=== PATIENT | female | born 1945 | race Caucasian/White ===

== ENCOUNTER 2023-06-19 13:01 | Inpatient (IN) | payer MEDICARE, OTHER, SELFPAY ==
[2023-06-19] VITALS (17 sets, daily range): BP systolic 112–143; BP diastolic 59–107
--- NOTE | 2023-06-19 08:08 | ED.GENMED ---
History of Present Illness
<Davey Blood PA-C - Last Filed: 06/19/23 10:53>
General
Chief Complaint: Chest Pain
Time Seen by Provider: 06/19/23 08:06
History of Present Illness
History of Present Illness:
78-year-old female with history of rheumatoid arthritis and hyperlipidemia (untreated, patient reports medications are 'too expensive') presents to the emergency department for evaluation of sudden onset of chest pain that awoke her from sleep this
morning. She notes that she had chest pain but felt she was in a dream, the exact time of symptom onset was unknown but she feels as though it could have been as early as 4 to 5 AM. Pain was reportedly quite severe, was administered 1 sublingual
nitroglycerin by EMS and pain is since resolved. Patient does endorse having episodic and exertional chest pain for the past several weeks but has neglected to tell her outpatient cardiology. Sees Dr. Weinstein with [facility],
apparently had an echocardiogram done yesterday for reevaluation of known 'leaky mitral valve'. Denies any shortness of breath, fever, chills, sweats, or lower extremity swelling. Former smoker quit greater than 20 years ago. Reports positive
family history of coronary artery disease
She did take a full dose 325mg asa this AM
Past History
<Davey Blood PA-C - Last Filed: 06/19/23 10:53>
Past History
ED Past Medical History: Fibromyalgia and Other (Kidney stones)
ED Past Surgical History: Other (Eye surgery)
Social History
Tobacco: Non-smoker
Alcohol: Occasional
Personal:
Living: with family
Employment: Employed
Family History
Family History: Negative Early CAD
Review of Systems
<Davey Blood PA-C - Last Filed: 06/19/23 10:53>
Review of Systems
Allergies reviewed?: Yes
All Other Systems: ROS reviewed and negative except as documented in HPI and ROS
Phy Exam
<Davey Blood PA-C - Last Filed: 06/19/23 10:53>
Physical Exam
Physical Exam:
GEN: Well appearing, NAD, WDWN
Eyes: PERRLA, EOMs intact, no scleral icterus
HENT: NCAT, oral mucosa moist, no JVD, no cervical adenopathy.
Lungs: CTAB, no wheezes, rales, rhonchi, normal chest wall excursion
Cardiac: RRR, no M/R/G, no peripheral edema. Radial pulses 2+ bilat
Abdomen: S, NT, ND, NABS, no masses or hepatosplenomegaly
Neuro: AO x 3, no focal deficits to BUE/BLE, normal sensation throughout
MSK: No gross deformity or ecchymosis. No edema. No digital clubbing
Skin: No rashes, petechiae. Normal color, no pallor or jaundice.
Psych: Calm, cooperative, proper hygiene
Scores
<Davey Blood PA-C - Last Filed: 06/19/23 10:53>
Heart Score for Chest Pain Patients
STEMI patient?: No
History: Highly Suspicious
ECG: Nonspecific Repolarization
Age: >/= 65 years
Risk Factors: 1 or 2 Risk Factors
Troponin: </= Normal Limit
Heart Score for Chest Pain Patients: 6
Heart Score Risk: 20.3% MACE over next 6 weeks
Course
<Davey Blood PA-C - Last Filed: 06/19/23 10:53>
Orders/Labs/Results
Orders:
Orders
06/19/23 Breakfast
NPO
Allow oral meds: Yes
Allow clear liquids: Sips of Clears
06/19/23 07:59
EKG [Electrocardiogram (*1)] Urgent
Reason for Study: Chest Pain
EKG- Treatment ONCE
06/19/23 08:07
CR Chest - 2 Views Urgent
Comment:
Reason For Exam: chest pain
06/19/23 08:12
Complete Blood Count/With Diff Urgent
Comprehensive Metabolic Panel Urgent
Troponin I Urgent
06/19/23 09:05
Aspirin Chewable [Low Strength Aspirin] 324 mg PO NOW STA
06/19/23 09:13
Heparin 4,000 units IV NOW STA
06/19/23 09:[address] Non Medication Order As Directed
Physician Order: PTT 6 hours after initial start of Heparin infusion
Above order entered?: Yes
06/19/23 09:15
Heparin 89277 Units/250 ml 25,000 units in 250 ml IV PER PROTOCOL
Weight to be used for heparin protocol in kilograms (kg):: 88.2
Protocol:: Cardiac Tx/Acute Coronary
PTT Goal Range to be used:: PTT 73 to 111 seconds
Order type:: Initial
INITIAL Infusion Dose (UNITS/KG/hr) & then follow protocol:: 12 units/kg/hr
Infusion Dose in UNITS/hr & then follow protocol (UNITS/hr):: 1,000
INFUSION RATE in mL/hr & then follow protocol (mL/hr):: 10
PTT less than or equal to 64 seconds:: Increase rate by 200 units/hr (+ 2 mL/hr)
PTT 64.1 to 72.9 seconds:: Increase rate by 100 units/hr (+ 1 mL/hr)
PTT 73 to 111 seconds:: Target Range. No change in rate.
PTT 111.1 to 130.9 seconds:: Decrease rate by 100 units/hr (- 1 mL/hr)
PTT 131 to 199.9 seconds:: HOLD for 1 hr. Then decrease rate by 200 units/hr (- 2 mL/hr)
PTT greater than or equal to 200 seconds:: HOLD for 2 hrs & Notify Provider. Then decrease by 200 units/hr (-
2 mL/hr)
Lab follow-up:: Each change, PTT q6h until 2 consecutive are therapeutic. Then PTT
daily.
06/19/23 09:25
PTT Urgent
Comment: Obtain baseline before beginning heparin infusion if not already collected
06/19/23 10:00
Metoprolol [Lopressor] 25 mg PO BID
06/19/23 10:32
EKG- Treatment ONCE
06/19/23 11:15
EKG [Electrocardiogram (*1)] Routine
Reason for Study: Chest Pain
Troponin I Routine
06/19/23 18:00
Atorvastatin [Lipitor] 40 mg PO QPM
Abnormal Lab Results
06/19/23 06/19/23
08:12 09:25
RBC 3.87 L 10^6/uL
(4.20-5.40)
Hgb 11.2 L g/dL
(12.0-16.0)
Hct 32.8 L %
(37.0-47.0)
Abs Immat Gran (auto) 0.1 H 10^3/uL
(0-0.05)
Absolute Neuts (auto) 9.5 H 10^3/uL
(1.4-6.5)
Absolute Lymphs (auto) 0.6 L 10^3/uL
(1.2-3.4)
Immature Gran % 0.6 H %
(0-0.5)
Neutrophils % 89.2 H %
(42.2-75.2)
Lymphocytes % 5.3 L %
(20.5-51.1)
APTT 21.9 L Sec
(23.4-35.0)
Troponin I 0.120 H* ng/ml
Total Protein 6.2 L g/dl
(6.3-8.2)
06/19/23 08:12
06/19/23 08:12
Vital Signs
Initial and Last Documented VS:
Initial Vital Signs
Pulse Resp BP
106 16 142/90
06/19/23 08:00 06/19/23 08:00 06/19/23 08:00
Last Documented Vital Signs
Temp Pulse Resp BP Pulse Ox
98.4 F 61 16 128/75 88
06/19/23 08:05 06/19/23 10:45 06/19/23 10:45 06/19/23 10:00 06/19/23 10:45
<Andres Shah, DO - Last Filed: 06/19/23 09:11>
Orders/Labs/Results
Orders:
Orders
06/19/23 Breakfast
NPO
Allow oral meds: Yes
Allow clear liquids: Sips of Clears
06/19/23 07:59
EKG [Electrocardiogram (*1)] Urgent
Reason for Study: Chest Pain
EKG- Treatment ONCE
06/19/23 08:07
CR Chest - 2 Views Urgent
Comment:
Reason For Exam: chest pain
06/19/23 08:12
Complete Blood Count/With Diff Urgent
Comprehensive Metabolic Panel Urgent
Troponin I Urgent
06/19/23 09:05
Aspirin Chewable [Low Strength Aspirin] 324 mg PO NOW STA
06/19/23 09:13
Heparin 4,000 units IV NOW STA
06/19/23 09:[address] Non Medication Order As Directed
Physician Order: PTT 6 hours after initial start of Heparin infusion
Above order entered?: Yes
06/19/23 09:15
Heparin 67999 Units/250 ml 25,000 units in 250 ml IV PER PROTOCOL
Weight to be used for heparin protocol in kilograms (kg):: 88.2
Protocol:: Cardiac Tx/Acute Coronary
PTT Goal Range to be used:: PTT 73 to 111 seconds
Order type:: Initial
INITIAL Infusion Dose (UNITS/KG/hr) & then follow protocol:: 12 units/kg/hr
Infusion Dose in UNITS/hr & then follow protocol (UNITS/hr):: 1,000
INFUSION RATE in mL/hr & then follow protocol (mL/hr):: 10
PTT less than or equal to 64 seconds:: Increase rate by 200 units/hr (+ 2 mL/hr)
PTT 64.1 to 72.9 seconds:: Increase rate by 100 units/hr (+ 1 mL/hr)
PTT 73 to 111 seconds:: Target Range. No change in rate.
PTT 111.1 to 130.9 seconds:: Decrease rate by 100 units/hr (- 1 mL/hr)
PTT 131 to 199.9 seconds:: HOLD for 1 hr. Then decrease rate by 200 units/hr (- 2 mL/hr)
PTT greater than or equal to 200 seconds:: HOLD for 2 hrs & Notify Provider. Then decrease by 200 units/hr (-
2 mL/hr)
Lab follow-up:: Each change, PTT q6h until 2 consecutive are therapeutic. Then PTT
daily.
06/19/23 09:25
PTT Urgent
Comment: Obtain baseline before beginning heparin infusion if not already collected
06/19/23 10:00
Metoprolol [Lopressor] 25 mg PO BID
06/19/23 10:32
EKG- Treatment ONCE
06/19/23 11:15
EKG [Electrocardiogram (*1)] Routine
Reason for Study: Chest Pain
Troponin I Routine
06/19/23 18:00
Atorvastatin [Lipitor] 40 mg PO QPM
Abnormal Lab Results
06/19/23 06/19/23
08:12 09:25
RBC 3.87 L 10^6/uL
(4.20-5.40)
Hgb 11.2 L g/dL
(12.0-16.0)
Hct 32.8 L %
(37.0-47.0)
Abs Immat Gran (auto) 0.1 H 10^3/uL
(0-0.05)
Absolute Neuts (auto) 9.5 H 10^3/uL
(1.4-6.5)
Absolute Lymphs (auto) 0.6 L 10^3/uL
(1.2-3.4)
Immature Gran % 0.6 H %
(0-0.5)
Neutrophils % 89.2 H %
(42.2-75.2)
Lymphocytes % 5.3 L %
(20.5-51.1)
APTT 21.9 L Sec
(23.4-35.0)
Troponin I 0.120 H* ng/ml
Total Protein 6.2 L g/dl
(6.3-8.2)
06/19/23 08:12
06/19/23 08:12
Vital Signs
Initial and Last Documented VS:
Initial Vital Signs
Pulse Resp BP
106 16 142/90
06/19/23 08:00 06/19/23 08:00 06/19/23 08:00
Last Documented Vital Signs
Temp Pulse Resp BP Pulse Ox
98.4 F 61 16 128/75 88
06/19/23 08:05 06/19/23 10:45 06/19/23 10:45 06/19/23 10:00 06/19/23 10:45
<Davey Blood PA-C - Last Filed: 06/19/23 10:53>
MDM/Problems Addressed
MDM/Problems Addressed:
78-year-old female presenting with acute onset of severe chest pain, now resolved after nitroglycerin. Having episodic anginal type symptoms over the course of the past few weeks. Does have cardiac risk factors with untreated hyperlipidemia and
positive family history. EKG does show some subtle lateral ST changes, initial troponin elevated. Most consistent with acute coronary syndrome. She remained chest pain-free in the emergency department, started on heparin drip and will admit to
the hospitalist service with cardiology consultation for further management
<Davey Blood PA-C - Last Filed: 06/19/23 10:53>
Comment
Comment:
EKG independently interpreted by me shows normal sinus rhythm at a rate of 99, borderline ST depressions in the lateral leads are new compared to prior EKG from 2010, no ST elevations, QTc of 444
Chest x-ray independently interpreted by me shows no acute cardiopulmonary disease
*Critical Care Note
Total Time (30-74mins, 75-104mins- exclusive of procedures): 30 mins
comment:
Critical care time: 30 minutes
Critical care time was exclusive of: Separately billable procedures, treating other patients, and teaching time
Critical care was necessary to treat or prevent imminent or life-threatening deterioration of the following conditions: Acute coronary syndrome
Critical care time spent personally by me on the following activities:
[x] Review of old charts
[x] Obtaining history from patient or surrogate
[x] Ordering and review of the laboratory studies
[x] Ordering and review of radiographic studies
[x] Ordering and performing treatments and interventions
[x] Patient patient's response to treatment
[x] Development of treatment plan with patient or surrogate
<Andres Shah DO - Last Filed: 06/19/23 09:11>
*Critical Care Note
Total Time (30-74mins, 75-104mins- exclusive of procedures): 30
<Davey Blood PA-C - Last Filed: 06/19/23 10:53>
Update Note
Update Note:
Patient had an echocardiogram performed [facility] yesterday, results were faxed over by the office, in summary 'severe concentric left ventricular hypertrophy with small LV cavity. Turbulent LVOT flow with no provokable gradients no
regional dysfunction. LVEF by visual estimation is 55 to 60%. Of note the aortic valve is tricuspid and thickened and calcified with mild aortic valve stenosis and trace aortic regurgitation, AoV velocity of 2.55 m/s and peak aortic valve gradient
of 26.1 mmHg. There is moderate calcification of the mitral valve leaflets with decreased posterior leaflet motility and moderate mitral annular calcification as well as turbulent inflow. Mild stenosis and regurgitation with a mean gradient of 4
mmHg. Aortic root and ascending aorta appear normal with no evidence of dilatation or obstruction'.
ED Attending Note
<Davey Blood PA-C - Last Filed: 06/19/23 10:53>
-
Portions of this chart may have been created with voice recognition software.� Occasional wrong word or��sound alike� substitutions may have occurred due to the inherent limitations of voice recognition software.
<Andres Shah DO - Last Filed: 06/19/23 09:11>
ED Attending Note
Patient seen and examined by attending physician: Yes
I performed the substantive portion of visit, reviewed & personally made and approve the management plan that is documented in note by myself or HILL.: Yes
ED Attending Note:
Seen with PA examined independently agree with assessment and plan consistent with ACS
Discharge Plan
Departure
Patient Disposition: Admit
Date of Disposition: 06/19/23
Time of Disposition: 09:13
Admit to: IVU
Presentation/result/management discussed w/ accepting MD/DO: Hospitalist
Discharge Problem:
Non-ST elevation ME (NSTEMI)
Prescriptions:
No Action
tramadol 50 mg tablet
37.5 mg PO Q8HPRN PRN (Reason: severe pain)
Patient Comments:
3/4 of a tablet
ipratropium bromide 42 mcg (0.06 %) spray,non-aerosol
1 spray INTRANASAL TID PRN (Reason: congestion)
zolpidem 12.5 mg tablet,ext release multiphase
12.5 mg PO HS
allopurinol 100 mg Tablet
100 mg PO DAILY
Rinvoq 15 mg Tablet Extended Release 24 Hr
15 mg PO DAILY
Breztri Aerosphere 160-9-4.8 mcg/actuation Hfa Aerosol Inhaler
1 inh INHALATION BIDPRN PRN (Reason: shortness of breath)
Tezspire 210 mg/1.91 mL (110 mg/mL) Syringe
210 mg SC Q4W
calc carb-mag ox-D3-zinc gluc 333 mg-133 mg- 1.67 mcg-5 mg Tablet
1 tab PO DAILY
Sleep Supplement
1 dose PO HS
Referrals:
Amy Lee DO [Family Provider] -
Interventions
Interventions:
*Risk Screen - Suicide Last Done: 06/19/23 08:05
*General Assessment Last Done: 06/19/23 08:05
*Neglect/Abuse Screening Last Done: 06/19/23 08:05
ED- Fall Risk Assessment Last Done: 06/19/23 08:33
*ED COVID-19 Vaccine History Last Done: 06/19/23 08:33
ED- Cardiac Assessment Last Done: 06/19/23 08:31
[2023-06-19 08:24] LABS: % Basophils 0.4 % (0-2); % Eosinophils 0.3 % (0-6); % Immature Granulocytes 0.6 % (0-0.5); % Lymphocytes 5.3 % (20.5-51.1); % Monocytes 4.2 % (1.7-9.3); % Neutrophils 89.2 % (42.2-75.2); Absolute Immature Granulocytes 0.1 10^3/uL (0-0.05); Absolute Lymphocytes 0.6 10^3/uL (1.2-3.4); Absolute Monocytes 0.5 10^3/uL (0.1-0.6); Absolute Neutrophils 9.5 10^3/uL (1.4-6.5); Hematocrit 32.8 % (37.0-47.0); Hemoglobin 11.2 g/dL (12.0-16.0); Mean Corp Hgb Conc. 34.1 g/dL (33.0-37.0); Mean Corpuscular Hgb 28.9 pg (27.0-31.0); Mean Corpuscular Volume 84.8 fL (81.0-99.0); Mean Platelet Volume 9.9 fL (7.4-10.4); Nucleated Red Blood Cells % 0 %; Platelet Count 231 10^3/uL (130-400); Red Blood Cell Count 3.87 10^6/uL (4.20-5.40); Red Cell Dist. Width 13.6 % (11.5-14.5); White Blood Cell Count 10.7 10^3/uL (4.8-10.8)
[2023-06-19 08:50] LABS: ALT (SGPT) 21 U/L (0-35); AST (SGOT) 29 U/L (14-36); Albumin 3.8 g/dl (3.5-5.0); Alkaline Phosphatase 76 U/L (38-126); Blood Urea Nitrogen 15 mg/dl (7-17); Calcium 9.4 mg/dl (8.4-10.2); Carbon Dioxide 26 mmol/L (22-30); Chloride 105 mmol/L (98-107); Glucose 98 mg/dl (70-99); Potassium 3.9 mmol/L (3.5-5.1); Sodium 135 mmol/L (135-145); Total Bilirubin 0.9 mg/dl (0.2-1.3); Total Protein 6.2 g/dl (6.3-8.2); eGFR > 60.00
[2023-06-19] MEDS: LOPRESSOR 25 MG PO ×2 (09:28→20:59)
[2023-06-19] MEDS: HEPARIN 4000 UNITS IV (09:39)
[2023-06-19] MEDS: HEPARIN 25000 UNITS/250 ML IV (09:40)
[2023-06-19 10:03] LABS: APTT 21.9 Sec (23.4-35.0)
--- NOTE | 2023-06-19 10:29 | CON.CAR ---
Addendum entered and electronically signed by Luann Ramirez MD 06/19/23 15:35:
I saw and examined the patient.
The Histotechnologist Supervisor's note was reviewed and I agree with the note.
Comment: Briefly, patient is a 78-year-old female with past medical history of hypertension, intolerant of multiple medications, hyperlipidemia, statin intolerance and fibromyalgia who presents to the emergency department for evaluation of 2-week
history of exertional dyspnea and chest discomfort found to have mild troponin elevation concerning for a possible NSTEMI. She feels like her shortness of breath never got better after her RSV infection over March. She denies any active chest
pain however she woke up around 4 AM feeling like an elephant was sitting on her chest. Her initial troponin was 0.12 and the second 1 went up to 0.33. Normal renal function. She received sublingual nitroglycerin and route. ECG with very mild ST
depressions in the lateral leads. She was given full dose aspirin and cardiology was consulted. Of note, she underwent a echocardiogram at her primary computer assembler office yesterday with report showing preserved LV systolic function, LVEF of 55 to
60%, no recent abnormalities, moderate mitral regurgitation, mild mitral stenosis and mild aortic stenosis.
Vital signs are stable. Lab work reviewed with normal renal function. Troponin 0.1-0.33. Otherwise normal electrolytes. Lipid panel is pending. Per outpatient cardiology note she stopped taking multiple blood pressure medications due to wearing
this and side effects from each of them. She has previously tried amlodipine, losartan, hydrochlorothiazide as well as Aldactone with intolerance to all of them. She has reportedly also been on multiple different statins with intolerance. She has
never been on Zetia or PCSK9 inhibitor.
Recommendations:
1. Lengthy discussion was had with the patient given her presentation with multiple uncontrolled cardiovascular risk factors and in a shared decision-making fashion, we have decided to move forward with left heart catheterization and coronary
angiogram to rule out obstructive CAD. I also spoke with her outpatient computer assembler, Dr. Warren Weinstein who has agreed with our plan.
2. In the interim we will continue with medical therapy of possible NSTEMI with daily baby aspirin, high intensity statin, beta-mj as well as as a IV heparin drip.
3. Further recommendations based on the results of the heart catheterization.
Luann Ramirez MD, [facility], [facility]
Original Note:
Consultation
Consultation Request
Date/Time Consultation Requested: 06/19/2023
Date/Time Consultation Performed: 06/19/2023 at 0930
Requesting Provider: Dr. Shah
Performing Provider: Dr. Ramirez
Reason for Consultation: Chest pain, ACS
Medical History
-
History of Present Illness:
HPI: Abena is an 78 year old female with PMH of HLD and fibromyalgia who presented to [facility] for evaluation of chest pain. She follows with Dr. Weinstein with [facility] and states that for the past week she has noted worsening chest tightness with exertion.
She states it has been progressing to the point where she is symptomatic with even minimal exertion. Just cooking dinner caused her to have chest tightness. She then reports that last night, around 4 AM she awoke with severe central chest pressure,
stating that it for like an elephant was sitting on her chest. She states she was unable to get out of bed due to weakness associated with this. She also had chest tightness and felt like she was not able to take a deep breath. She tried getting
out of bed, but given how severe her symptoms were, she had her call 911. When EMS arrived, they gave her sublingual nitroglycerin, after this, her chest discomfort resolved. On arrival to the emergency room, she was noted to have elevated
troponin at 0.12. Given symptoms, she was started on IV heparin and given aspirin 324 mg and cardiology was consulted given concern for ACS. Of note, she had echocardiogram completed at her primary computer assembler's office yesterday which revealed
preserved EF at 55 to 60% with no regional wall motion abnormalities noted. She notes that she did have some mild recurrence of the chest tightness while in ER, however after being started on heparin drip, she states this is now also resolved.
PMH:
Hypertension
Intolerant to multiple medications
Mitral stenosis
Mitral regurgitation
Vitamin D deficiency
Fibromyalgia
Hyperlipidemia
Statin intolerant
Asthma
Former smoker
Past Medical History
Past Medical History: Other (In HPI)
Past Surgical History: Other (lithotripsy, carpal tunnel release)
Social History
Tobacco: Former Smoker
Alcohol: Occasional
Drug: None
Personal:
Living: With Family
Employment: Retired
Family History
Family History: CAD and Hypertension
Allergies / Home Medications
Allergy/AdvReac Type Severity Reaction Status Date / Time
neomycin [Neomycin] Allergy EYE DROPS Verified 06/19/23 08:05
Sulfa (Sulfonamide Allergy Hives Verified 06/19/23 08:05
Antibiotics)
sulfacetamide Allergy Hives Verified 06/19/23 08:05
Medication Instructions Recorded Confirmed Type
Sleep Supplement 1 dose PO HS Sleep 06/19/23 06/19/23 History
allopurinol 100 mg tablet 100 mg PO DAILY 06/19/23 06/19/23 History
budesonide 160 mcg-glycopyr 9 1 inh inhalation BIDPRN PRN 06/19/23 06/19/23 History
mcg-formot 4.8 mcg/actuation HFA shortness of breath
inhaler (Breztri Aerosphere)
calcium carb 333 mg-mag ox 133 1 tab PO DAILY 06/19/23 06/19/23 History
mg-D3 1.67 mcg-zinc gluc 5 mg
tablet
ipratropium bromide 42 mcg (0.06 1 spray intranasal TID PRN 06/19/23 06/19/23 History
%) nasal spray congestion
tezepelumab-ekko 210 mg/1.91 mL 210 mg SC Q4W asthma 06/19/23 06/19/23 History
(110 mg/mL) subcutaneous syringe
(Tezspire)
tramadol 50 mg tablet 37.5 mg PO Q8HPRN PRN severe pain 06/19/23 06/19/23 History
upadacitinib 15 mg tablet,extended 15 mg PO DAILY Psoriatic arthritis 06/19/23 06/19/23 History
release 24 hr (Rinvoq)
zolpidem 12.5 mg tablet,extended 12.5 mg PO HS Sleep 06/19/23 06/19/23 History
release,multiphase
Review of Systems
-
History Source: Patient
All other systems: Negative unless noted
Physical Exam
Vital Signs
Temp Pulse Resp BP Pulse Ox
98.4 F 82 16 142/90 94
06/19/23 08:05 06/19/23 09:28 06/19/23 08:05 06/19/23 09:28 06/19/23 08:31
Lab Results
06/19/23 08:12
06/19/23 08:12
Troponin I 0.120 ng/ml H* 06/19/23 08:12
Physical Exam
General: Well Developed, Well Nourished and No Apparent Distress
HEENT: Normocephalic, Anicteric and Moist Mucous Membranes
Respiratory: Clear and Non Labored Respirations
Cardiac: S1/S2 and Regular Rhythm
GI: Soft, Non Tender and Non Distended
Musculoskeletal: No Clubbing, No Cyanosis and No Edema
Skin: Warm and Dry
Neuro: AO x 3 and Nonfocal/Grossly Intact
Psych: Calm
Impression / Plan
-
PCP: Dr. Lee
[place] Monitoring Technician: Dr. Weinstein ([facility]), wishes to transition to [facility]
Impression:
Presented with chest pain
Elevated troponin, suspect NSTEMI
Hypertension
Intolerant to multiple medications
Mitral stenosis
Mitral regurgitation
Vitamin D deficiency
Fibromyalgia
Hyperlipidemia
Statin intolerant
Asthma
Former smoker
Echo @[facility] 06/18/2023: EF 55-60%, severe cLVH, no regional dysfunction, mild with peak/mean gradients 26/17 mmHg, moderate MAC, mild MS and MR
Plan:
-Presented with chest pain. Has been having exertional chest tightness x 1 week, however last night awoke with substernal chest pain/pressure.
-Pain resolved s/p SL nitro en route. Also given aspirin 324 mg in ER.
-Troponin elevation noted on arrival, initial troponin of 0.120. Continue to trend to peak.
-EKG stable in SR with no acute ischemic changes noted.
-Started on heparin gtt. Pain free currently.
-Given chest pain concerning for ACS, plan will be for cardiac cath today. Pt agreeable. Keep NPO.
-Echo completed yesterday as OP revealed EF 55-60% with no RWMA.
-She has history of hypertension with prior intolerance to multiple antihypertensives. Per las OP cardiology note, her BPs were stable off of medical therapy.
-Previously intolerant of amlodipine, aldactone, HCTZ, and losartan.
-Also known h/o HLD, intolerant to statin medications. Check CVE. Will need to consider PCSK9 inhibitor.
-Check Hgb A1c.
-Requested and reviewed prior cardiology records including last office visit and echo.
HPI: Abena is an 78 year old female with PMH of HLD and fibromyalgia who presented to [facility] for evaluation of chest pain. She follows with Dr. Weinstein with [facility] and states that for the past week she has noted worsening chest tightness with exertion.
She states it has been progressing to the point where she is symptomatic with even minimal exertion. Just cooking dinner caused her to have chest tightness. She then reports that last night, around 4 AM she awoke with severe central chest pressure,
stating that it for like an elephant was sitting on her chest. She states she was unable to get out of bed due to weakness associated with this. She also had chest tightness and felt like she was not able to take a deep breath. She tried getting
out of bed, but given how severe her symptoms were, she had her call 911. When EMS arrived, they gave her sublingual nitroglycerin, after this, her chest discomfort resolved. On arrival to the emergency room, she was noted to have elevated
troponin at 0.12. Given symptoms, she was started on IV heparin and given aspirin 324 mg and cardiology was consulted given concern for ACS. Of note, she had echocardiogram completed at her primary computer assembler's office yesterday which revealed
preserved EF at 55 to 60% with no regional wall motion abnormalities noted. She notes that she did have some mild recurrence of the chest tightness while in ER, however after being started on heparin drip, she states this is now also resolved.
Data Reviewed
-
EKG: Tracing Personally Visualized and interpreted
Radiology: Report Reviewed by me
Labs: Labs Reviewed by me
Old Records: Requested and Reviewed
[2023-06-19 12:09] LABS: Troponin I 0.335 ng/ml
--- NOTE | 2023-06-19 13:48 | HPS.HSE ---
Family Physician
-
Family Physician: Amy Lee
Chief Complaint
-
chest pain
History of Present Illness
78 y/o F, hx of HTN, HLD, former smoker presents to ER for chest pain. She reports symptoms began 1 week prior with chest tightness with exertion and progressed to the point of discomfort with minimal exertion. Last evening she woke up with severe
pain, like an elephant sitting on her chest. She felt SOB as well. 911 was called. She received SL Nitro with improvement; she took ASA at home. In ER, trop elevated and so started on IV Heparin for NSTEMI and admitted to IVU for cath today.
Of note, she had an Echo yesterday showing EF 55% with no WMA.
Medical History
Past Medical History
Past Medical History: Reports Other (Hypertension Intolerant to multiple medications Mitral stenosis Mitral regurgitation Vitamin D deficiency Fibromyalgia Hyperlipidemia Statin intolerant Asthma Former smoker)
Past Surgical History: Reports Urological
Social History
Tobacco: Former Smoker
Alcohol: Occasional
Drug: None
Personal:
Living: With Family
Employment: Retired
Family History
Family History: CAD and Hypertension
Allergies / Home Medications
Allergies reflects when Allergies were last updated in [facility].
Home Medications with original date entered in [facility]
Allergy/Medication List:
Allergies
Allergy/AdvReac Type Severity Reaction Status Date / Time
neomycin [Neomycin] Allergy EYE DROPS Verified 06/19/23 08:05
Sulfa (Sulfonamide Allergy Hives Verified 06/19/23 08:05
Antibiotics)
sulfacetamide Allergy Hives Verified 06/19/23 08:05
Home Medications
Sleep Supplement 1 dose PO HS Sleep 06/19/23
allopurinol 100 mg tablet 100 mg PO DAILY Gout 06/19/23
budesonide 160 mcg-glycopyr 9 mcg-formot 4.8 mcg/actuation HFA inhaler (Breztri Phantom Payphere) 1 inh inhalation BIDPRN PRN shortness of breath 06/19/23
calcium carb 333 mg-mag ox 133 mg-D3 1.67 mcg-zinc gluc 5 mg tablet 1 tab PO DAILY Supplement 06/19/23
ipratropium bromide 42 mcg (0.06 %) nasal spray 1 spray intranasal TID PRN congestion 06/19/23
tezepelumab-ekko 210 mg/1.91 mL (110 mg/mL) subcutaneous syringe (Tezspire) 210 mg SC Q4W asthma 06/19/23
tramadol 50 mg tablet 37.5 mg PO Q8HPRN PRN severe pain 06/19/23
upadacitinib 15 mg tablet,extended release 24 hr (Rinvoq) 15 mg PO DAILY Psoriatic arthritis 06/19/23
zolpidem 12.5 mg tablet,extended release,multiphase 12.5 mg PO HS Sleep 06/19/23
Review of Systems
-
A 12 point ROS was completed and negative except as noted: Yes
Physical Exam
Vital Signs
Vital Signs
Temp Pulse Resp BP Pulse Ox
98.4 F 61 16 128/75 88
06/19/23 08:05 06/19/23 10:45 06/19/23 10:45 06/19/23 10:00 06/19/23 10:45
Physical Exam
General: No Apparent Distress
HEENT: NormoCephalic and Anicteric
Respiratory: No Wheezes or Rales
Cardiac: S1/S2 and Regular Rhythm
GI: Soft and Non Tender
Neuro: AO x 3
Hematologic/Lymphatic: No Lymphadenopathy
Psych: Calm
Laboratory Results
-
06/19/23 08:12
06/19/23 08:12
Laboratory Results
APTT 21.9 Sec (23.4-35.0) L 06/19/23 09:25
Total Bilirubin 0.9 mg/dl (0.2-1.3) 06/19/23 08:12
AST 29 U/L (14-36) 06/19/23 08:12
ALT 21 U/L (0-35) 06/19/23 08:12
Alkaline Phosphatase 76 U/L (38-126) 06/19/23 08:12
Troponin I 0.335 ng/ml H* D 06/19/23 11:23
Data Reviewed
-
Lab Data: Labs Reviewed by me
Impression/Plan
-
Assessment:
Presented with chest pain
Elevated troponin, suspect NSTEMI
- IVU admit
- continue to trend trops
- s/p ASA load in ER
- continue IV Heparin - requires intensive monitoring
- DCA Cards, possible cath today
- outside Echo yesterday: EF 55-60%, severe cLVH, no regional dysfunction, mild with peak/mean gradients 26/17 mmHg, moderate MAC, mild MS and MR
Essential Hypertension
- Intolerant to multiple medications
Mitral stenosis
Mitral regurgitation
Vitamin D deficiency
Fibromyalgia
- on Rinvoq
Hyperlipidemia
- check lipids
- Statin intolerant
Asthma
- on Tezspire
Former smoker
DVT ppx: IV Heparin
Code: Full
--- NOTE | 2023-06-19 15:36 | ITS.CL.CATH ---
Agricultural Systems Specialist - Catheterization
Cardiac Catheterization
Procedure Report:
LEFT HEART CATHETERIZATION
Date of Procedure: June 19, 2023
Referring: [place] emergency department
PROCEDURES:
1. Left heart catheterization, coronary angiogram.
2. Ultrasound-guided access
INDICATION: Abena is a 78-year-old female with past medical history of tobacco abuse, former, uncontrolled hypertension, intolerant to multiple medications, hyperlipidemia, statin intolerance, fibromyalgia who presents today with 2-week history of
dyspnea on exertion and intermittent chest tightness found to have a possible NSTEMI and is now being referred for a left heart catheterization to rule out obstructive CAD.
ACCESS: Right radial artery, 6 Guyanese sheath, under ultrasound guidance.
HEMODYNAMICS : (mmHg)
AO (s/d) : 146/82
LV (s/d) : 146/9
LVEDP : 20
CORONARY FINDINGS
DOMINANCE: Right
LEFT MAIN: Left main artery is a large-caliber vessel which gives rise to the left anterior descending artery and the left circumflex artery. There is minimal luminal irregularities.
LEFT ANTERIOR DESCENDING: The left anterior descending artery is a large-caliber vessel which gives rise to 1 major diagonal branch along with multiple small caliber diagonal branches as it courses through the anterior interventricular groove and
wraps around the apex. There is diffuse mild atherosclerotic plaque in the midportion of the LAD. Otherwise there is minimal luminal irregularities.
CIRCUMFLEX: The left circumflex artery is a medium caliber vessel which gives rise to 1 major branching obtuse marginal branch. The proximal portion of the OM has diffuse 30% stenosis.
RIGHT CORONARY ARTERY: The right coronary artery is a medium caliber vessel which gives rise to the right posterior descending artery and the right posterolateral system. There is mild diffuse atherosclerotic plaque throughout the vessel.
SEDATION: 28 minutes of procedural sedation was utilized. An independent medical typist was present to assist with and help manage the patient's level of consciousness and physiologic status.
RADIATION SUMMARY: Fluoro Time (min): 4.8, Dose (mGy): 369.2, DAP (Gy.cm2) : 26.0
Closure Device: Vascular band over right radial artery, 13 cc of air
CONCLUSIONS
1. Non-obstructive coronary artery disease.
2. Elevated systemic blood pressures and LVEDP.
RECOMMENDATIONS
1. Aggressive management of cardiovascular risk factors.
2. Wean radial band per protocol.
Copy to: Warren Weinstein
Luann Ramirez MD, FACC, [facility]
--- NOTE | 2023-06-19 16:18 | CM ---
CM following for DC planning needs.
Met w/ patient, spouse at bedside to complete initial assessment.
Pt. resides w/ spouse in a private, 2 story home w/ 4 DAYO.
Functionally, patient is indep. with ADLs, mobility without the use of any assisted device. They have a stair glide in the home to the 2nd level.
Pt. has Rx plan and uses [facility] in [place].
Anticipated DC plan is for home without needs.
Will follow.
[2023-06-19] MEDS: LASIX 20 MG IV (17:21)
[2023-06-19 19:06] LABS: Troponin I 0.656 ng/ml
--- NOTE | 2023-06-19 19:32 | PTCARENOTE ---
Pt with NSTEMI received post cardiac cath done via right radial artery. Radial band removed without problem. Pt reported feeling short of breath, pulse ox 97% on room air. Pt given IV lasix, diuresing well. Telemetry shows sinus rhythm. Troponin
still trending up slightly.
[2023-06-19] MEDS: NON-FORMULARY ITEM 1 UNIT PO (22:07)
[2023-06-20] VITALS (8 sets, daily range): BP systolic 116–141; BP diastolic 68–106; PULSE 60–69; O2SAT 94; BMI 32.6
[2023-06-20 05:38] LABS: Hematocrit 36.3 % (37.0-47.0); Mean Corp Hgb Conc. 33.1 g/dL (33.0-37.0); Mean Corpuscular Hgb 28.7 pg (27.0-31.0); Mean Corpuscular Volume 86.8 fL (81.0-99.0); Platelet Count 259 10^3/uL (130-400); Red Blood Cell Count 4.18 10^6/uL (4.20-5.40); Red Cell Dist. Width 13.6 % (11.5-14.5); White Blood Cell Count 6.6 10^3/uL (4.8-10.8)
[2023-06-20 06:08] LABS: Troponin I 0.721 ng/ml
[2023-06-20 06:18] LABS: Blood Urea Nitrogen 19 mg/dl (7-17); Calcium 9.8 mg/dl (8.4-10.2); Carbon Dioxide 31 mmol/L (22-30); Chloride 101 mmol/L (98-107); Estimated Creatinine Clearance 58 ml/min; Glucose 102 mg/dl (70-99); HDL Cholesterol 62 mg/dl; LDL Cholesterol, Calculated 136 mg/dl; Magnesium 2.2 mg/dl (1.6-2.3); Potassium 4.4 mmol/L (3.5-5.1); Sodium 139 mmol/L (135-145); Total Cholesterol 233 mg/dl (50-199); Triglyceride 179 mg/dl (10-149); Very Low Density Lipoprotein 35 mg/dl (0-30); eGFR > 60.00
[2023-06-20] MEDS: LOPRESSOR 25 MG PO (08:57)
--- NOTE | 2023-06-20 11:11 | PTOTSP ---
Pt is at functional baseline but is SOB with activity. She is interested in cardiac rehab. Acute care PT will sign off.
[2023-06-20 11:15] LABS: Glycohemoglobin (HgbA1c) 5.8 % (4.0-5.6)
[2023-06-20 12:27] LABS: Troponin I 0.421 ng/ml
--- NOTE | 2023-06-20 12:49 | CM ---
CM following for DC planning needs.
Met w/ patient at bedside. Pt. is hopeful for DC soon and offers no concerns/needs.
Anticipate DC to home, no needs.
--- NOTE | 2023-06-20 13:04 | W.PN.CARDCBS ---
Addendum entered and electronically signed by Luann Ramirez MD 06/20/23 15:44:
I saw and examined the patient.
The Equipment Mechanic Specialist's note was reviewed and I agree with the note.
Comment: Overall patient is doing well. Her breathing is improved with some Lasix. No recurrent chest discomfort.
Vital signs and lab work reviewed. Exam unremarkable overall. Patient is awake, alert and oriented x 3, no acute distress, regular rate and rhythm, normal S1 and S2, no murmurs, rubs or gallops, recent cath access site without evidence of hematoma
or bruit. Abdomen is soft, nontender, nondistended with active bowel sounds, lungs are clear to auscultation bilaterally.
Recommendations:
1. Heart catheterization with nonobstructive coronary artery disease in the setting of elevated LVEDP. Continue with diuretics upon discharge given ongoing dyspnea on exertion.
2. Recommend pulmonary evaluation as an outpatient given prior history of asthma.
3. For her hyperlipidemia that is not controlled, we had initially recommended statin however patient was hesitant to be on this given prior history of intolerance. We then subsequently recommended Zetia however if she tells us that the cost of
this medication is too high. She is now agreeable to trying atorvastatin 20 mg at bedtime with co-Q10 as recommended by a family friend to them.
4. She will follow-up with her outpatient liquid center assembler.
Stable for discharge from a cardiac standpoint.
Luann Ramirez MD, [facility], [facility]
Addendum entered and electronically signed by Jodie Ruff PA-C 06/20/23 15:08:
patient states zetia too expensive. she is agreeable to try atorvastatin 20mg QPM with CoQ10.
Original Note:
Today's Communication / Plan
-
cath with nonobstructive CAD
recent echo with preserved EF, mild
CP and [facility] appear noncardiac in etiology
OP follow up with pulm recommended given asthma
add zetia
OP follow up with Dr. Weinstein
Impression / Plan
-
PCP: Dr. Lee
Breakdown Worker: Dr. Weinstein ([facility] Cardiology)
Impression:
Presented with chest pain
Elevated troponin, suspect NSTEMI
Hypertension
Intolerant to multiple medications
Mitral stenosis
Mitral regurgitation
Vitamin D deficiency
Fibromyalgia
Hyperlipidemia
Statin intolerant
Asthma
Former smoker
Echo @[facility] 06/18/2023: EF 55-60%, severe cLVH, no regional dysfunction, mild with peak/mean gradients 26/17 mmHg, moderate MAC, mild MS and MR
Plan:
-she presented with chest pain, and also describes dyspnea with minimal exertion for 2 weeks leading up to admission
-trop peaked at 0.7 and trending down. s/p cath with nonobstructive CAD
-OP echo at [facility] with results as above
-symptoms do not appear to be cardiac in etiology
-reportedly ambulatory pulse ox without significant desaturation
-not tachycardic and no glaring risk factors for PE (no recent travel, history of clotting disorders, recent surgery)
-she has asthma but is not followed by telegraph equipment maintainer, which I have encouraged. she states she was recently started on tezspire by her investment executive which she feels may correlate to the onset of her symptoms
-CVE noted with LDL 136. previously intolerant of multiple statins. would consider for PCSK9 inhibitor as OP. add zetia
-no further inpatient work up from cardiac standpoint
-OP follow up with Dr. Weinstein
-d/w patient and at bedside
HPI: Abena is an 78 year old female with PMH of HLD and fibromyalgia who presented to [facility] for evaluation of chest pain. She follows with Dr. Weinstein with PSY[facility]IATR[facility] and states that for the past week she has noted worsening chest tightness with exertion.
She states it has been progressing to the point where she is symptomatic with even minimal exertion. Just cooking dinner caused her to have chest tightness. She then reports that last night, around 4 AM she awoke with severe central chest pressure,
stating that it for like an elephant was sitting on her chest. She states she was unable to get out of bed due to weakness associated with this. She also had chest tightness and felt like she was not able to take a deep breath. She tried getting
out of bed, but given how severe her symptoms were, she had her call 911. When EMS arrived, they gave her sublingual nitroglycerin, after this, her chest discomfort resolved. On arrival to the emergency room, she was noted to have elevated
troponin at 0.12. Given symptoms, she was started on IV heparin and given aspirin 324 mg and cardiology was consulted given concern for ACS. Of note, she had echocardiogram completed at her primary liquid center assembler's office yesterday which revealed
preserved EF at 55 to 60% with no regional wall motion abnormalities noted. She notes that she did have some mild recurrence of the chest tightness while in ER, however after being started on heparin drip, she states this is now also resolved.
Progress Note - Breakdown Worker
Subjective
Date of Service: June 20, 2023
no further CP. reports continued [facility]
Objective
Labs:
06/20/23 05:
06/20/23 05:
Labs
Hgb 12.0 g/dL (12.0-16.0) 06/20/23 05:
Hct 36.3 % (37.0-47.0) L 06/20/23 05:
Plt Count 259 10^3/uL (130-400) 06/20/23 05:01
APTT 21.9 Sec (23.4-35.0) L 06/19/23 09:25
Sodium 139 mmol/L (135-145) 06/20/23 05:
Potassium 4.4 mmol/L (3.5-5.1) 06/20/23 05:01
BUN 19 mg/dl (7-17) H 06/20/23 05:
Creatinine 0.8 mg/dL (0.6-1.0) 06/20/23 05:01
Glucose 102 mg/dl (70-99) H 06/20/23 05:01
Troponins
06/19/23 06/19/23 06/19/23
08:12 11:23 18:11
Troponin I 0.120 H* 0.335 H* D 0.656 H* D
06/20/23 06/20/23
05:01 11:42
Troponin I 0.721 H* 0.421 H* D
Vital Signs and I&O:
Vital Signs
Temp Pulse Resp BP Pulse Ox
97.8 F 59 20 128/88 97
06/20/23 12:12 06/20/23 12:15 06/20/23 12:12 06/20/23 12:14 06/20/23 12:28
Vital Signs
Temp Pulse Resp BP Pulse Ox
97.8 F 59 20 128/88 97
06/20/23 12:12 06/20/23 12:15 06/20/23 12:12 06/20/23 12:14 06/20/23 12:28
Intake & Output
06/18/23 06/19/23 06/20/23 06/21/23
07:59 07:59 07:59 07:59
Intake Total 400 / 400
Balance 400 / 400
Physical Exam
Physical Exam
GEN: No distress, awake, alert, oriented x3
HEENT: supple, anicteric, mmm, eomi
LUNGS: CTA B/L, no wheezes/rales
CV: Reg, S1/S2, 2/6 murmur
ABD: soft, BS+, NT/ND
EXT: No cyanosis, clubbing, edema
NEURO: Gross non-focal
SKIN: Warm, pink, dry. No rash
[2023-06-20] MEDS: ULTRAM 50 MG PO (13:28)
[2023-06-20] MEDS: ZETIA 10 MG PO (14:40)
--- NOTE | 2023-06-20 15:30 | W.PN.HOSP.TC ---
Today's Communication/Plan
-
dc home
Assessment / Plan
Assessment / Plan
Assessment:
Presented with chest pain
Elevated troponin, c/w NSTEMI
- s/p cath with nonobstructive CAD
- dc on ASA, Statin (+ coq10)
- outside Echo yesterday: EF 55-60%, severe cLVH, no regional dysfunction, mild with peak/mean gradients 26/17 mmHg, moderate MAC, mild MS and MR
Essential Hypertension
- Intolerant to multiple medications
- continue Lasix
Mitral stenosis
Mitral regurgitation
Vitamin D deficiency
Fibromyalgia
- on Rinvoq
Hyperlipidemia
Statin (+ coq10)
Asthma
- on Tezspire
Former smoker
Code: Full
More than 30 minutes spent in discharge including
Final examination of the patient
Summarizing hospital stay
Instructions for continuing care to all relevant caregivers
Preparation of discharge records, prescriptions, and referral forms
Total time spent (in minutes):41
Anticipated Discharge: Today
Subjective/Interval History
-
Date of Service: June 20, 2023
denies any new complaints
Objective Data
-
Labs:
Laboratory Results
06/20/23
05:01
WBC 6.6
Hgb 12.0
Hct 36.3 L
Plt Count 259
Sodium 139
Potassium 4.4
Chloride 101
Carbon Dioxide 31 H
BUN 19 H
Creatinine 0.8
Glucose 102 H
Calcium 9.8
Vital Signs:
Vital Signs
Temp Pulse Resp BP Pulse Ox
97.8 F 63 20 128/88 97
06/20/23 12:12 06/20/23 13:00 06/20/23 12:12 06/20/23 12:14 06/20/23 12:28
I&O
06/19/23 06/20/23 06/21/23
06:59 06:59 06:59
Intake Total 400 / 400
Balance 400 / 400
Physical Exam
-
General: No Apparent Distress
HEENT: Normocephalic and Atraumatic
Respiratory: Negative Wheezes or Rales
Cardiac: Regular Rhythm and S1/S2
GI: Soft and Nontender
Musculoskeletal: No Edema
Neuro: AO x 3
Hematologic / Lymphatic: No Lymphadenopathy
Psych: Calm
Data Reviewed
-
Total Time Spent with Patient (in minutes): 41
Labs: Labs Reviewed by me
[2023-06-20] MEDS: LASIX 20 MG PO (15:34)
--- NOTE | 2023-06-20 15:43 | W.DS.TRANS ---
DC Summary - [place]
-
Discharge Instructions:
Discharge Diagnosis/Procedures Chest pain, Cardiac cath with mild CAD
Diet Low Cholesterol
Driving Restrictions No driving for 24 hours
Bathing Restrictions None
Instructions:
Stand-Alone Forms: DC Instructions- Cath/EP Lab
Changes to Home Medications: No
Discharge Medications:
DC Medications w/original date entered in [email or web address]
Sleep Supplement 1 dose PO HS Sleep 06/19/23
allopurinol 100 mg tablet 100 mg PO DAILY Gout 06/19/23
budesonide 160 mcg-glycopyr 9 mcg-formot 4.8 mcg/actuation HFA inhaler (Breztri Aerosphere) 1 inh inhalation BIDPRN PRN shortness of breath 06/19/23
calcium carb 333 mg-mag ox 133 mg-D3 1.67 mcg-zinc gluc 5 mg tablet 1 tab PO DAILY Supplement 06/19/23
ipratropium bromide 42 mcg (0.06 %) nasal spray 1 spray intranasal TID PRN congestion 06/19/23
tezepelumab-ekko 210 mg/1.91 mL (110 mg/mL) subcutaneous syringe (Tezspire) 210 mg SC Q4W asthma 06/19/23
tramadol 50 mg tablet 37.5 mg PO Q8HPRN PRN severe pain 06/19/23
upadacitinib 15 mg tablet,extended release 24 hr (Rinvoq) 15 mg PO DAILY Psoriatic arthritis 06/19/23
zolpidem 12.5 mg tablet,extended release,multiphase 12.5 mg PO HS Sleep 06/19/23
aspirin 81 mg tablet,delayed release 81 mg PO DAILY #100 tabs 06/20/23
atorvastatin 20 mg tablet 20 mg PO QPM #30 tabs 06/20/23
coenzyme Q10 10 mg capsule 30 mg PO DAILY #30 caps 06/20/23
furosemide 20 mg tablet 20 mg PO DAILY #30 tabs 06/20/23
Home Medication Changes
Pending Results: No
Total time spent discharging patient (in min): 41
--- NOTE | 2023-06-20 16:45 | PTCARENOTE ---
Pt up in room, seen by PT and OT. She denies chest discomfort, c/o fibromyalgia pain only. Pt seen by Drs. Ramirez and Jess. Telemetry and IV device removed. Discharge instructions reviewed with pt and her and daughter regarding medications and
their possible side effects, wound care, activity and driving guidelines, reporting cares and concerns and follow up appt's. Very good understanding verbalized. Pt escorted out via wheelchair and discharged to home.
== END 2023-06-20 16:15 | disposition home or self-care (01) | DRG 282 ==
LOC: IVU 13:01
PROVIDERS: Physician Assistant; ADMITTING PHYSICIAN Internal Medicine; EMERGENCY PHYSICIAN Emergency Medicine; FAMILY PHYSICIAN Family Medicine; OTHER PHYSICIAN Internal Medicine Interventional Cardiology
PROC: B2111ZZ Fluoroscopy of Multiple Coronary Arteries using Low Osmolar Contrast (ICD-10-PCS; 2023-06-19)
PROC: 4A023N7 Measurement of Cardiac Sampling and Pressure, Left Heart, Percutaneous Approach (ICD-10-PCS; 2023-06-19)
PROC: B2151ZZ Fluoroscopy of Left Heart using Low Osmolar Contrast (ICD-10-PCS; 2023-06-19)
DX: I21.4 Non-ST elevation (NSTEMI) myocardial infarction (principal); M79.7 Fibromyalgia; E78.5 Hyperlipidemia, unspecified; M06.9 Rheumatoid arthritis, unspecified; I10 Essential (primary) hypertension; I34.0 Nonrheumatic mitral (valve) insufficiency; I25.10 Atherosclerotic heart disease of native coronary artery without angina pectoris; E55.9 Vitamin D deficiency, unspecified; J45.909 Unspecified asthma, uncomplicated; Z87.442 Personal history of urinary calculi; Z87.891 Personal history of nicotine dependence; Z91.141 Patient's other noncompliance with medication regimen due to financial hardship; Z82.49 Family history of ischemic heart disease and other diseases of the circulatory system; Z88.1 Allergy status to other antibiotic agents; Z88.2 Allergy status to sulfonamides
CPT/HCPCS: 71046; 76937; 80048; 80053; 80061; 83036; 83735; 84484; 85025; 85027; 85730; 93005; 93458; 96374; 97162; 97166; 99152; 99153; 99291; C1894; Q9967

== ENCOUNTER → 2023-07-09 14:46 | Outpatient (REF) | payer MEDICARE, OTHER, SELFPAY | LOC: RAD 14:46 | PROVIDERS: ATTENDING PHYSICIAN Internal Medicine Critical Care Medicine; FAMILY PHYSICIAN Family Medicine | DX: R06.02 Shortness of breath (principal) | CPT/HCPCS: 71275; Q9967 ==

== ENCOUNTER 2023-09-09 13:48 | Inpatient (IN) | payer MEDICARE, OTHER, SELFPAY ==
[2023-09-08] VITALS (12 sets, daily range): BP systolic 74–170; BP diastolic 52–100; BMI 33.3
[2023-09-08 06:01] LABS: % Basophils 0.7 % (0-2); % Eosinophils 2.2 % (0-6); % Immature Granulocytes 0.4 % (0-0.5); % Lymphocytes 15.4 % (20.5-51.1); % Monocytes 8.2 % (1.7-9.3); % Neutrophils 73.1 % (42.2-75.2); Absolute Basophils 0.1 10^3/uL (0-0.2); Absolute Eosinophils 0.2 10^3/uL (0-0.7); Absolute Monocytes 0.6 10^3/uL (0.1-0.6); Absolute Neutrophils 4.9 10^3/uL (1.4-6.5); Hematocrit 35.8 % (37.0-47.0); Hemoglobin 12.2 g/dL (12.0-16.0); Mean Corp Hgb Conc. 34.1 g/dL (33.0-37.0); Mean Corpuscular Hgb 28.4 pg (27.0-31.0); Mean Corpuscular Volume 83.4 fL (81.0-99.0); Mean Platelet Volume 10.4 fL (7.4-10.4); Nucleated Red Blood Cells % 0 %; Platelet Count 207 10^3/uL (130-400); Red Blood Cell Count 4.29 10^6/uL (4.20-5.40); Red Cell Dist. Width 12.9 % (11.5-14.5); White Blood Cell Count 6.7 10^3/uL (4.8-10.8)
[2023-09-08 06:18] LABS: ALT (SGPT) 20 U/L (0-35); AST (SGOT) 32 U/L (14-36); Albumin 4.3 g/dl (3.5-5.0); Alkaline Phosphatase 66 U/L (38-126); Blood Urea Nitrogen 22 mg/dl (7-17); Calcium 9.8 mg/dl (8.4-10.2); Carbon Dioxide 24 mmol/L (22-30); Chloride 103 mmol/L (98-107); Estimated Creatinine Clearance 58 ml/min; Glucose 100 mg/dl (70-99); Potassium 3.5 mmol/L (3.5-5.1); Sodium 137 mmol/L (135-145); Total Bilirubin 0.8 mg/dl (0.2-1.3); Total Protein 6.5 g/dl (6.3-8.2); eGFR > 60.00
--- NOTE | 2023-09-08 07:21 | ED.GENMED ---
History of Present Illness
<Edgardo Latham PA-C - Last Filed: 09/08/23 09:34>
General
Chief Complaint: Change in Mental Status
Source: patient
Exam Limitations: none
Time Seen by Provider: 09/08/23 07:03
Travel History
Have you had any contact with someone who has COVID-19?: No
Do you have any symptoms of coronavirus? Fever > 100 degrees, chills, cough, shortness of breath, sore throat, loss of taste or smell, muscle aches, or headache?: No
History of Present Illness
History of Present Illness:
78-year-old female presents with confusion and change in mental status onset this morning. She states she lost her balance was walking backwards and fell and hit her head. She is not anticoagulated. She denies chest pain or shortness of breath.
She tells me that she was making lists to get ready for some refugees other staying in her house for 1 night. No reported fever. No urinary symptoms. She does state to me that last week she threw her back out and cyclobenzaprine was prescribed as
well as tramadol. No other complaints at this time
Past History
<Edgardo Latham PA-C - Last Filed: 09/08/23 09:34>
Past History
ED Past Medical History: Fibromyalgia and Other (Kidney stones)
ED Past Surgical History: Other (Eye surgery)
Social History
Tobacco: Non-smoker
Alcohol: Occasional
Personal:
Living: with family
Employment: Employed
Family History
Family History: Negative Early CAD
Phy Exam
<Edgardo Latham PA-C - Last Filed: 09/08/23 09:34>
Physical Exam
Physical Exam:
General: Well-appearing female no acute respiratory distress
HEENT: Normocephalic mucosa dry neck is supple pupils equal round reactive to light
Heart: Regular rate and rhythm no murmurs
Lungs: Clear no wheeze or
Abdomen: Soft nontender nondistended
Neurologic exam: Alert and oriented to person and place. She knows it is May. No drift on exam finger-nose intact no nystagmus tlla-qb-gdol intact speech is clear at times the words do not make sense
Extremities: No cyanosis or edema
Course
<Edgardo Latham PA-C - Last Filed: 09/08/23 09:34>
Orders/Labs/Results
Orders:
Orders
09/08/23 05:53
EKG [Electrocardiogram (*1)] Urgent
Reason for Study: TIA/Stroke
09/08/23 05:54
EKG- Treatment ONCE
09/08/23 05:55
Complete Blood Count/With Diff Urgent
Comprehensive Metabolic Panel Urgent
09/08/23 07:19
CT Head W/o Iv Contrast Urgent
Comment:
Reason For Exam: fall, confusion
09/08/23 07:42
Drug Screen, Urine [Urine Drug Abuse Screen] Urgent
Date Specimen was Collected: 09/08/23
Time Specimen was Collected: 07:39
Urinalysis Reflex To Culture Urgent
Date Specimen was Collected: 09/08/23
Time Specimen was Collected: 07:39
Urine Microscopic Reflex Cult Urgent
Abnormal Lab Results
09/08/23 09/08/23
05:55 07:42
Hct 35.8 L %
(37.0-47.0)
Absolute Lymphs (auto) 1.0 L 10^3/uL
(1.2-3.4)
Lymphocytes % 15.4 L %
(20.5-51.1)
BUN 22 H mg/dl
(7-17)
Glucose 100 H mg/dl
(70-99)
Ur Occult Blood Reflex Trace A
(Negative)
Leukocyte Esterase Rfl Trace A
(Negative)
Ur Tricyclics Screen Positive H
(Negative)
09/08/23 05:55
09/08/23 05:55
Vital Signs
Initial and Last Documented VS:
Initial Vital Signs
Temp Pulse Resp BP
98.4 F 103 18 132/92
09/08/23 05:44 09/08/23 05:44 09/08/23 05:44 09/08/23 05:44
Last Documented Vital Signs
Temp Pulse Resp BP Pulse Ox
98.4 F 90 15 149/84 88
09/08/23 05:44 09/08/23 10:00 09/08/23 10:00 09/08/23 09:00 09/08/23 06:00
<Kelvin Peraza MD - Last Filed: 09/08/23 10:04>
Orders/Labs/Results
Orders:
Orders
09/08/23 05:53
EKG [Electrocardiogram (*1)] Urgent
Reason for Study: TIA/Stroke
09/08/23 05:54
EKG- Treatment ONCE
09/08/23 05:55
Complete Blood Count/With Diff Urgent
Comprehensive Metabolic Panel Urgent
09/08/23 07:19
CT Head W/o Iv Contrast Urgent
Comment:
Reason For Exam: fall, confusion
09/08/23 07:42
Drug Screen, Urine [Urine Drug Abuse Screen] Urgent
Date Specimen was Collected: 09/08/23
Time Specimen was Collected: 07:39
Urinalysis Reflex To Culture Urgent
Date Specimen was Collected: 09/08/23
Time Specimen was Collected: 07:39
Urine Microscopic Reflex Cult Urgent
Abnormal Lab Results
09/08/23 09/08/23
05:55 07:42
Hct 35.8 L %
(37.0-47.0)
Absolute Lymphs (auto) 1.0 L 10^3/uL
(1.2-3.4)
Lymphocytes % 15.4 L %
(20.5-51.1)
BUN 22 H mg/dl
(7-17)
Glucose 100 H mg/dl
(70-99)
Ur Occult Blood Reflex Trace A
(Negative)
Leukocyte Esterase Rfl Trace A
(Negative)
Ur Tricyclics Screen Positive H
(Negative)
09/08/23 05:55
09/08/23 05:55
Vital Signs
Initial and Last Documented VS:
Initial Vital Signs
Temp Pulse Resp BP
98.4 F 103 18 132/92
09/08/23 05:44 09/08/23 05:44 09/08/23 05:44 09/08/23 05:44
Last Documented Vital Signs
Temp Pulse Resp BP Pulse Ox
98.4 F 90 15 149/84 88
09/08/23 05:44 09/08/23 10:00 09/08/23 10:00 09/08/23 09:00 09/08/23 06:00
<Edgardo Latham PA-C - Last Filed: 09/08/23 09:34>
MDM/Problems Addressed
Differential Diagnosis Includes:
Patient notes loss of balance and fall backwards with head strike earlier. reported confusion. Patient does note that she is taking in refugees. Not sure if this is true. She also states she threw her back out last week was started on
cyclobenzaprine. Will check CT for signs of CVA or trauma. Check urine for urine urinary tract infection.
<Edgardo Latham PA-C - Last Filed: 09/08/23 09:34>
*Critical Care Note
Total Time (30-74mins, 75-104mins- exclusive of procedures): Not Applicable
<Edgardo Latham PA-C - Last Filed: 09/08/23 09:34>
Update Note
Update Note:
CT head shows possible lacunar infarct. Work workup here otherwise without significant finding UA negative. Patient did start cyclobenzaprine 3 days ago. Question possible medication adverse reaction. now in the room. He states this was
noted at 4 AM this morning. He heard her rummaging around the house getting things ready for refugees coming to her house. This is not true per the . She is not back to her baseline. Will admit to hospital for encephalopathy.
ED Attending Note
<Edgardo Latham PA-C - Last Filed: 09/08/23 09:34>
-
Portions of this chart may have been created with voice recognition software.� Occasional wrong word or��sound alike� substitutions may have occurred due to the inherent limitations of voice recognition software.
<Kelvin Peraza MD - Last Filed: 09/08/23 10:04>
ED Attending Note
Patient seen and examined by attending physician: Yes
I performed the substantive portion of visit, reviewed & personally made and approve the management plan that is documented in note by myself or HILL.: Yes
ED Attending Note:
78-year-old female with an episode of confusion and hallucinations this morning. Has been sleepy since starting Flexeril last week. Seems slightly improved per the but still slightly off.
She is nonfocal in no distress. Regular rate and rhythm. No murmur. Lungs clear and equal. Nonfocal exam. Speech normal. Cranial nerves II through XII intact.
Workup shows a age-indeterminate small lacunar infarct. Other testing is negative. I suspect this is the Flexeril although central neurologic issue has to be considered.
Discharge Plan
Departure
Patient Disposition: Admit
Date of Disposition: 09/08/23
Time of Disposition: 09:34
Admit to: Telemetry
Presentation/result/management discussed w/ accepting MD/DO: Hospitalist
Discharge Problem:
Encephalopathy
Prescriptions:
No Action
tramadol 50 mg tablet
50 mg PO Q8HPRN PRN (Reason: severe pain)
ipratropium bromide 42 mcg (0.06 %) spray,non-aerosol
1 spray INTRANASAL TID PRN (Reason: congestion)
zolpidem 12.5 mg tablet,ext release multiphase
12.5 mg PO HS
allopurinol 100 mg Tablet
100 mg PO DAILY
Rinvoq 15 mg Tablet Extended Release 24 Hr
15 mg PO DAILY
Patient Comments:
patient receiving samples from provider office
Breztri Aerosphere 160-9-4.8 mcg/actuation Hfa Aerosol Inhaler
1 inh INHALATION R BID
Patient Comments:
patient receiving samples from provider office
Tezspire 210 mg/1.91 mL (110 mg/mL) Syringe
210 mg SC Q4W
furosemide 20 mg tablet
20 mg PO Q48H
cyclobenzaprine [Flexeril] 10 mg Tablet
10 mg PO TIDPRN PRN (Reason: spasms)
acetaminophen [Tylenol] 325 mg Tablet
650 mg PO Q6HPRN PRN (Reason: mild pain)
Theragen Tablet
1 tab PO DAILY
calcium carbonate [Calcium 500] 500 mg calcium (1,250 mg) Tablet
500 mg PO DAILY
cholecalciferol (vitamin D3) [Vitamin D3] 25 mcg (1,000 unit) Tablet
25 mcg PO DAILY
coQ10 (ubiquinol) 100 mg Capsule
100 mg PO DAILY
Referrals:
Amy Lee DO [Family Provider] -
Interventions
Interventions:
*Risk Screen - Suicide Last Done: 09/08/23 05:44
*General Assessment Last Done: 09/08/23 05:44
*Neglect/Abuse Screening Last Done: 09/08/23 05:44
ED- Fall Risk Assessment Last Done: 09/08/23 06:05
*ED COVID-19 Vaccine History Last Done: 09/08/23 05:44
ED- Pulmonary Assessment Last Done: 09/08/23 06:05
ED- Neurological Assessment Last Done: 09/08/23 06:05
ED- Cardiac Assessment Last Done: 09/08/23 06:05
Discharge Date and Time
Print Language: SPANISH
[2023-09-08 07:56] LABS: Urine Albumin Negative (Neg - Trace); Urine Bilirubin Negative (Negative); Urine Character Clear (Clear); Urine Color Yellow; Urine Glucose Negative (Negative); Urine Ketone Negative (Negative); Urine Leukocyte Trace (Negative); Urine Nitrite Negative (Negative); Urine Occult Blood Trace (Negative); Urine Urobilinogen Negative (Neg - 1+)
[2023-09-08 08:28] LABS: Amphetamines Negative (Negative); Barbiturates Negative (Negative); Benzodiazepines Negative (Negative); Buprenorphine Negative (Negative); Cocaine Negative (Negative); Marijuana Negative (Negative); Methadone Negative (Negative); Methamphetamines Negative (Negative); Opiates Negative (Negative); Phencyclidine Negative (Negative); Tricyclic Antidepressants Positive (Negative)
[2023-09-08 09:05] LABS: Urine Mucus Few
[2023-09-08 09:06] LABS: Urine Amorphous Seen; Urine Red Blood Cell 0-2 /HPF (0-2); Urine White Cell 0-2 /HPF (0-5)
--- NOTE | 2023-09-08 12:17 | HPS.HSE ---
Family Physician
-
Family Physician: Amy Lee
Chief Complaint
-
change in mentation
History of Present Illness
78 y/o F presents to ER with confusion. Patient states she lost her balance, walked backwards and fell, hitting her head. Her states she was rummaging through paperwork and preparing dishes for what the patient states were refugees coming to
the house but states this is inaccurate. Per , patient also disoriented. No other complaints.
She suffered a back issue last week and went to chiropractor first which she feels like over-did it and 24 hours later, she was prescribed Flexeril. She is also on Tramadol chronically. notes that her presenting symptoms seem to have started
after the Flexeril.
in ER, labs were unremarkable, patient on CT head found to have Subcentimeter focal hypodensity within the right basal ganglia suspicious for age indeterminate lacunar infarct. Patient admitted for further eval.
Medical History
Past Medical History
Past Medical History: Reports Asthma, CAD, Fibromyalgia, HTN, Hypercholesterolemia and Other (Hypertension Intolerant to multiple medications Mitral stenosis Mitral regurgitation Vitamin D deficiency Fibromyalgia Hyperlipidemia Statin intolerant
Asthma Former smoker))
Past Surgical History: Reports None
Social History
Tobacco: Former Smoker
Alcohol: Occasional
Personal:
Living: With Family
Family History
Family History: CAD and Hypertension
Allergies / Home Medications
Allergies reflects when Allergies were last updated in [email or web address].
Home Medications with original date entered in [email or web address]
Allergy/Medication List:
Allergies
Allergy/AdvReac Type Severity Reaction Status Date / Time
bacitracin Allergy Hives Verified 09/08/23 06:09
clavulanic acid Allergy Nausea / Verified 09/08/23 06:09
[From Augmentin] Vomiting
Fish Containing Products Allergy Unknown Verified 09/08/23 06:09
neomycin [Neomycin] Allergy EYE DROPS Verified 09/08/23 06:09
Sulfa (Sulfonamide Allergy Hives Verified 09/08/23 06:09
Antibiotics)
sulfacetamide Allergy Hives Verified 09/08/23 06:09
Home Medications
allopurinol 100 mg tablet 100 mg PO DAILY Gout 06/19/23
budesonide 160 mcg-glycopyr 9 mcg-formot 4.8 mcg/actuation HFA inhaler (Breztri Aerosphere) 1 inh inhalation R BID Lung/Breathing Issues 06/19/23
ipratropium bromide 42 mcg (0.06 %) nasal spray 1 spray intranasal TID PRN congestion 06/19/23
tezepelumab-ekko 210 mg/1.91 mL (110 mg/mL) subcutaneous syringe (Tezspire) 210 mg SC Q4W asthma 06/19/23
tramadol 50 mg tablet 50 mg PO Q8HPRN PRN severe pain 06/19/23
upadacitinib 15 mg tablet,extended release 24 hr (Rinvoq) 15 mg PO DAILY Psoriatic arthritis 06/19/23
zolpidem 12.5 mg tablet,extended release,multiphase 12.5 mg PO HS Sleep 06/19/23
acetaminophen 325 mg tablet (Tylenol) 650 mg PO Q6HPRN PRN mild pain 09/08/23
calcium carbonate 500 mg PO DAILY Supplement 09/08/23
cholecalciferol (vitamin D3) 25 mcg (1,000 unit) tablet (Vitamin D3) 25 mcg PO DAILY Supplement 09/08/23
coQ10 (ubiquinol) 100 mg capsule 100 mg PO DAILY Supplement 09/08/23
cyclobenzaprine 10 mg tablet 10 mg PO TIDPRN PRN spasms 09/08/23
furosemide 20 mg tablet 20 mg PO Q48H Fluid Retention/Swelling 09/08/23
therapeutic multivitamin 1 tab PO DAILY Supplement 09/08/23
Review of Systems
-
A 12 point ROS was completed and negative except as noted: Yes
Physical Exam
Vital Signs
Vital Signs
Temp Pulse Resp BP Pulse Ox
98.4 F 91 22 149/84 88
09/08/23 05:44 09/08/23 11:00 09/08/23 11:00 09/08/23 09:00 09/08/23 06:00
Physical Exam
General: No Apparent Distress
HEENT: NormoCephalic and Anicteric
Respiratory: No Wheezes or Rales
Cardiac: S1/S2 and Regular Rhythm
GI: Soft
Neuro: AO x 3, No Motor Deficits, Nonfocal/grossly intact, No Sensory Deficits and Other (at times foggy but most lucid and aware of her presenting symptoms)
Hematologic/Lymphatic: No Lymphadenopathy
Psych: Calm
Laboratory Results
-
09/08/23 05:55
09/08/23 05:55
Laboratory Results
Total Bilirubin 0.8 mg/dl (0.2-1.3) 09/08/23 05:55
AST 32 U/L (14-36) 09/08/23 05:55
ALT 20 U/L (0-35) 09/08/23 05:55
Alkaline Phosphatase 66 U/L (38-126) 09/08/23 05:55
Data Reviewed
-
CT Scan: Report Reviewed by me and Discussed with Patient
Lab Data: Labs Reviewed by me and Discussed with Patient
Impression/Plan
-
Assessment:
TME likely in setting of Flexeril
- she also is on Tramadol but prior to current presentation without any known side effects
- stop Flexeril
- no other NEW meds
- no concern for infectious etiology, UA negative, no fevers, normal WBC
- CT head: Subcentimeter focal hypodensity within the right basal ganglia suspicious for age indeterminate lacunar infarct.
- will obtain MRI brain to further evaluate. Patient requesting sedation will limit to 0.5mg PO Ativan
- neuro checks q4h
- observe mental status for improvement
Mechanical fall
- CT head negative for trauma
- PT/OT
Acute back pain, likely muscular
- hold all muscle relaxers
- ok to resume Tramadol which is a chronic
- heating pad
- Lidocaine patches
- Bengay
- PT/OT
Recent NSTEMI 05/2023
HLD
- previously on ASA/Statin. ASA stopped for nose bleeds 3 weeks ago and Statin stopped due to muscle pain
Essential Hypertension
- Intolerant to multiple medications
- continue Lasix
Mitral stenosis
Mitral regurgitation
Vitamin D deficiency on replacement
Fibromyalgia
- on Rinvoq
Asthma
- on Tezspire/Breztri
Chronic insomnia
- on Ambien
Former smoker
DVT ppx: Lovenox
Code: Full
--- NOTE | 2023-09-08 15:00 | PTCARENOTE ---
Pt admitted into room 405-2, ambulated with [id number] into room. AAOx3. VSS. Tele showing sinus arrythmia. Pt oriented to room and has call liao within reach.
[2023-09-08] MEDS: BenGay-Like 1 APPLIC TOPICAL (16:24)
[2023-09-08] MEDS: LIDOCAINE 4% PATCH 2 PATCH TOPICAL (16:24)
[2023-09-08] MEDS: LASIX 30 MG PO (16:50)
[2023-09-08] MEDS: ULTRAM 50 MG PO (16:51)
[2023-09-08] MEDS: SYMBICORT 160/4.5 MCG INHALER 2 PUFF INH (20:07)
[2023-09-08] MEDS: BenGay-Like TOPICAL ×2 (21:02→21:08)
[2023-09-08] MEDS: AMBIEN 10 MG PO (21:04)
[2023-09-09] VITALS (9 sets, daily range): BP systolic 116–162; BP diastolic 69–99; PULSE 88; O2SAT 98
[2023-09-09 05:23] LABS: Hematocrit 37.7 % (37.0-47.0); Hemoglobin 12.9 g/dL (12.0-16.0); Mean Corp Hgb Conc. 34.2 g/dL (33.0-37.0); Mean Corpuscular Hgb 28.5 pg (27.0-31.0); Mean Corpuscular Volume 83.4 fL (81.0-99.0); Mean Platelet Volume 10.2 fL (7.4-10.4); Platelet Count 214 10^3/uL (130-400); Red Blood Cell Count 4.52 10^6/uL (4.20-5.40); Red Cell Dist. Width 12.9 % (11.5-14.5)
[2023-09-09 05:46] LABS: Blood Urea Nitrogen 14 mg/dl (7-17); Calcium 9.7 mg/dl (8.4-10.2); Carbon Dioxide 27 mmol/L (22-30); Chloride 104 mmol/L (98-107); Estimated Creatinine Clearance 66 ml/min; Glucose 100 mg/dl (70-99); HDL Cholesterol 54 mg/dl; LDL Cholesterol, Calculated 186 mg/dl; Sodium 140 mmol/L (135-145); Total Cholesterol 273 mg/dl (50-199); Triglyceride 166 mg/dl (10-149); Very Low Density Lipoprotein 33 mg/dl (0-30); eGFR > 60.00
[2023-09-09 06:17] LABS: TSH Reflex To Free T4 0.19 uIU/ml (0.47-4.68)
[2023-09-09 06:36] LABS: Vitamin B12 353 pg/ml (239-931)
[2023-09-09 06:45] LABS: Free T4 0.97 ng/dl (0.78-2.19)
[2023-09-09] MEDS: SYMBICORT 160/4.5 MCG INHALER 2 PUFF INH (07:46)
[2023-09-09] MEDS: SPIRIVA RESPIMAT 2.5 MCG 2 PUFF INH (07:46)
[2023-09-09] MEDS: BenGay-Like 1 APPLIC TOPICAL (09:03)
[2023-09-09] MEDS: LIDOCAINE 4% PATCH 2 PATCH TOPICAL (09:05)
[2023-09-09] MEDS: OSCAL CAL 500 500 MG PO (09:05)
[2023-09-09] MEDS: ZYLOPRIM 100 MG PO (09:06)
[2023-09-09] MEDS: THERAGRAN 1 TABLET PO (09:06)
[2023-09-09] MEDS: VITAMIN D3 (cholecalciferol) 25 MCG PO (09:06)
[2023-09-09] MEDS: FLUSH (NSS) 1 FLUSH IV (09:08)
[2023-09-09 10:09] LABS: Glycohemoglobin (HgbA1c) 5.8 % (4.0-5.6)
--- NOTE | 2023-09-09 10:47 | W.PN.HOSP.TC ---
Addendum entered and electronically signed by Nito Charles MD 09/09/23 13:43:
8.7 mm ACUTE ISCHEMIC INFARCT in the SUBCORTICAL WHITE MATTER of the LATERAL RIGHT FRONTAL LOBE RODRIGUEZ RADIATA. on MRI
consult Neurology; add ASA back. if unwilling to add statin back might have to consider OP Repatha
Original Note:
Today's Communication/Plan
-
await MRI and possible Dispo this evening to home pending results
Assessment / Plan
Assessment / Plan
Assessment:
TME likely in setting of Flexeril
- she also is on Tramadol but prior to current presentation without any known side effects
- stop Flexeril
- no other NEW meds
- no concern for infectious etiology, UA negative, no fevers, normal WBC
- CT head: Subcentimeter focal hypodensity within the right basal ganglia suspicious for age indeterminate lacunar infarct.
- will obtain MRI brain to further evaluate. Patient requesting sedation will limit to 0.5mg PO Ativan
- neuro checks q4h
- mental status has improved
Mechanical fall
- CT head negative for trauma
- PT/OT - outpatient therapy recommended, script provided
Acute back pain, likely muscular
- hold all muscle relaxers
- ok to resume Tramadol which is a chronic
- heating pad
- Lidocaine patches
- Bengay
- PT/OT - outpatient therapy recommended, script provided
- she follows with pain management and has an appointment later this week to review her regimen and try to cut back
Recent NSTEMI 05/2023
HLD
- previously on ASA/Statin. ASA stopped for nose bleeds 3 weeks ago and Statin stopped due to muscle pain
- consider Repatha
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
Essential Hypertension
- Intolerant to multiple medications
- continue Lasix
Mitral stenosis
Mitral regurgitation
Vitamin D deficiency on replacement
Fibromyalgia
- on Rinvoq
Asthma
- on Tezspire/Breztri
Chronic insomnia
- on Ambien
Former smoker
DVT ppx: Lovenox
Code: Full
Anticipated Discharge: Within 24 hours
Subjective/Interval History
-
Date of Service: September 09, 2023
more alert today, denies any complaints
back pain improving with lidocaine patches
Objective Data
-
Labs:
Laboratory Results
09/09/23
05:03
WBC 6.0
Hgb 12.9
Hct 37.7
Plt Count 214
Sodium 140
Potassium 4.0
Chloride 104
Carbon Dioxide 27
BUN 14
Creatinine 0.7
Glucose 100 H
Calcium 9.7
Vital Signs:
Vital Signs
Temp Pulse Resp BP Pulse Ox
97.7 F 90 18 132/74 94
09/09/23 07:55 09/09/23 07:55 09/09/23 07:55 09/09/23 07:55 09/09/23 07:55
I&O
09/08/23 09/09/23 09/10/23
06:59 06:59 06:59
Intake Total 1679 / 0
Balance 168 / 1680
Physical Exam
-
General: No Apparent Distress
HEENT: Normocephalic and Atraumatic
Respiratory: Negative Wheezes
Cardiac: Regular Rhythm and S1/S2
GI: Soft and Nontender
Musculoskeletal: No Edema
Neuro: AO x 3
Hematologic / Lymphatic: No Lymphadenopathy
Psych: Calm
Data Reviewed
-
Total Time Spent with Patient (in minutes): 41
Labs: Labs Reviewed by me
[2023-09-09] MEDS: ATIVAN 0.5 MG PO (11:47)
--- NOTE | 2023-09-09 11:59 | CM ---
CM met with Abena at bedside. She was admitted after a fall, striking her head. had reported confusion after the fall, however Abena is now AAOx3. Pt lives with her in a 2 story home with 3 steps to enter; stairglide to the
second floor.
Abena was awaiting MRI and hoping to return home today.
D/C Plan: home with no needs. Outpatient PT/OT Rx to be provided, however Abena may not pursue.
PCP: Amy Lee
Pharmacy: [facility] in [place]
[2023-09-09] MEDS: LASIX 20 MG PO (13:07)
--- NOTE | 2023-09-09 14:38 | CON.NEURO4 ---
Addendum entered and electronically signed by Chilo Childs MD 09/09/23 15:39:
Studies reviewed.
I have personally examined the patient. I reviewed and agree with the LOAN TELLER's Note.
My addenda:
Awake, alert, interactive. No acute distress.
Speech intact.
Follows 2-step requests w/o difficulty. No tremor.
Extra-ocular movements grossly intact.
Facial movements full and symmetric. Hearing intact to normal conversational volume.
Normal UE movements bilaterally.
Neck: full ROM.
Chest: no dyspnea
Heart: no JVD
Ext: (-) Clubbing, (-) Cyanosis, (-) Edema
IMPRESSIONS/RECOMMENDATIONS:
Abrupt onset of encephalopathy most likely secondary to acute ischemic stroke involving the right frontal rodriguez radiata as demonstrated by MRI of brain
Presence of a left temporal lobe chronic hemorrhage is suggestive of possible cerebral amyloidosis
Provide dual antiplatelet therapy and discontinue clopidogrel maintaining aspirin alone
Check CTA head and neck to better define possible etiologies for the patient's symptomatology
Provide Ezetimibe as the patient is statin intolerant
This
Follow-up with neurosurgery as planned for cervical spine compression
Outpatient home sleep study for probable obstructive sleep apnea
D/W patient
Will continue to follow patient.
Original Note:
Consultation - Neurology 4
-
CONSULTING PHYSICIAN: Chilo Childs MD
REFERRING PHYSICIAN: Hospitalists/Dr. Charles
DICTATED BY: NATHALIE Colunga
DATE/TIME OF REQUEST: 09/09/23
DATE/TIME OF CONSULTATION: 09/09/23
Reason for Consultation: CVA
History of Present Illness:
This is an 78-year-old female who has presented to the hospital on 09/08/23 with report of confusion. This information is obtained from medical records as patient is leaving the floor for testing. Patient's reports that yesterday morning
(09/08/23) she was having confused conversation when she lost her balance and fell backwards striking her head. Last week she was reporting back pain and was evaluated by a chiropractor. She was prescribed Flexeril, and patient's notes that
her confusion seemed to start after she started taking Flexeril. CT head was obtained in the ER and was suspicious for a right basal ganglia age-indeterminate infarct prompting further workup. She had no known history of stroke, aspirin 81mg daily
was initiated. She is statin intolerant.
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
Surgical History: cardiac cath, eye surgery
Family History: Father- from unknown neurological disease age 54?
Social History: Occasional alcohol. Former smoker. No illcit drug use.
Allergies: Bacitracin, clavulanic acid, fish containing products, neomycin, sulfa.
Home Medications: See below.
Review of Symptoms:
Per the HPI. I am unable to obtain a complete review of systems due to the patient leaving the floor for testing.
Physical Exam:
The patient is afebrile, abdomen is nondistended, breathing is unlabored, skin is warm and dry, no edema.
NIH Stroke Scale:
Unable to complete due to the patient leaving the floor for testing.
Neurologic Examination:
Unable to complete examination due to the patient leaving the floor for testing.
The patient is awake and alert. Ambulating independently to stretcher, gait steady, appears to move all extremities full strength.
Lab Results: See below.
Neuro Imaging:
1. CT Head 09/08/23: No definitive acute intracranial abnormality. Mild microvascular ischemia. Subcentimeter focal hypodensity within the right basal ganglia suspicious for age indeterminate lacunar infarct.
2. MRI brain 09/09/23: 8.7 mm ACUTE ISCHEMIC INFARCT in the SUBCORTICAL WHITE MATTER of the LATERAL RIGHT FRONTAL LOBE RODRIGUEZ RADIATA. 7.5 mm chronic ischemic infarct in the left frontal lobe centrum semiovale. Moderate periventricular and
subcortical white matter leukoaraiosis in the frontal and parietal lobes. Mild diffuse cerebral and cerebellar volume loss. 7 mm chronic intraparenchymal microhemorrhage in the posterior superior left temporal lobe. Severe multilevel discogenic
degenerative disease in the cervical spine with disc-osteophyte complexes causing mild multilevel spinal cord compression.
Differentials for the patient's presentation include:
1. Acute subcortical white matter of the lateral right frontal lobe rodriguez radiata ischemic infarct. Etiology likely small vessel disease.
2. Chronic left frontal lobe centrum semiovale ischemic stroke.
3. Chronic intraparenchymal microhemorrhage in the posterior superior left temporal lobe.
4. MRI brain suggestive of cervical spinal cord DDD/compression.
Patient has the following risk factors for their symptoms: Old CVAs on MRI brain, HTN, HLD, flexeril
IV Tenecteplase/IAT candidacy: Not a candidate due to unremarkable neurological exam, symptoms thought to be due to flexeril.
Recommendations:
-Initiate DAPT for 21 days with aspirin and Plavix. After 21 days, discontinue Plavix and continue aspirin 81mg daily only, indefinitely.
-CTA head/neck pending.
-Goal normotension.
-TTE pending.
-Monitor on telemetry. Patient should have outpatient extended cardiac monitoring.
-Would avoid Flexeril.
-LDL goal <70. LDL is 186. Patient is statin intolerant. Initiate ezetimibe 10mg daily. Patient needs outpatient Cardiology follow-up for PSK9 inhibitor.
-Goal normoglycemia, hbA1c is 5.8.
-NIHSS and neurological checks per unit guidelines.
-Provide patient with a stroke education packet.
-PT/OT/ST Evaluations.
-DVT prophylaxis.
-Patient is supposed to have a home sleep study for DAVE per outpatient pulmonary note.
-Follow-up with Neurosurgery as an outpatient regarding cervical spinal cord compression on MRI brain imaging. Can have outpatient cervical spine imaging.
-Will follow pending results.
Discussed patient care with: Dr. Childs
Vital Signs and Labs
-
Vital Signs and Labs:
Vital Signs
Temp Pulse Resp BP Pulse Ox
98.7 F 83 16 116/69 96
09/09/23 10:55 09/09/23 10:55 09/09/23 10:55 09/09/23 10:55 09/09/23 10:55
Lab Results
09/09/23 05:03
09/09/23 05:03
Sodium 140 mmol/L (135-145) 09/09/23 05:03
Potassium 4.0 mmol/L (3.5-5.1) 09/09/23 05:03
BUN 14 mg/dl (7-17) 09/09/23 05:03
Glucose 100 mg/dl (70-99) H 09/09/23 05:03
Calcium 9.7 mg/dl (8.4-10.2) 09/09/23 05:03
LDL Cholesterol, Calc 186 mg/dl 09/09/23 05:03
Vitamin B12 353 pg/ml (239-931) 09/09/23 05:03
Ur Buprenorphine Negative (Negative) 09/08/23 07:42
Medications
-
Active Medications
Generic Name Dose Route Start Last Admin
Trade Name Freq PRN Reason Stop Dose Admin
Acetaminophen 650 mg 09/08/23 14:28
Acetaminophen 325 Mg Tablet PO 10/06/23 14:27
Q6HPRN PRN
mild pain
Albuterol Sulfate 2.5 mg 09/08/23 14:28
Albuterol Nebs 2.5 Mg/3 Ml Ampul INH
R Q4HPRN PRN
shortness of breath
Protocol
Allopurinol 100 mg 09/09/23 08:00 09/09/23 09:06
Allopurinol 100 Mg Tablet PO 10/07/23 07:59 100 mg
DAILY TANNA Administration
Aspirin 81 mg 09/10/23 08:00
Aspirin 81 Mg Chewable Tablet PO 10/08/23 07:59
DAILY TANNA
Bisacodyl 10 mg 09/08/23 14:28
Bisacodyl 10 Mg Rectal Suppository RECTAL 10/06/23 14:27
[id number] PRN
constipation
Budesonide/Formoterol Fumarate 2 puff 09/08/23 20:00 09/09/23 07:46
Symbicort Inhaler 160/4.5 INH 10/06/23 19:59 2 puff
R BID TANNA Administration
Calcium Carbonate 500 mg 09/09/23 08:00 09/09/23 09:05
Calcium Carbonate 500 Mg Tablet PO 10/07/23 07:59 500 mg
DAILY TANNA Administration
Cholecalciferol 25 mcg 09/09/23 08:00 09/09/23 09:06
Cholecalciferol (Vitamin D3) 25 Mcg Tablet (1,000 Units) PO 10/07/23 07:59 25 mcg
DAILY TANNA Administration
Clopidogrel Bisulfate 75 mg 09/09/23 16:00
Clopidogrel 75 Mg Tablet PO 09/29/23 08:01
DAILY TANNA
Cyanocobalamin 1,000 mcg 09/09/23 15:00
Cyanocobalamin 1,000 Mcg Tablet PO 10/07/23 14:59
DAILY TANNA
Ezetimibe 10 mg 09/09/23 22:00
Ezetimibe (Zetia) 10 Mg Tablet PO 10/07/23 21:59
HS TANNA
Enoxaparin Sodium 40 mg 09/08/23 18:00 09/08/23 18:36
Enoxaparin Sodium 40 Mg/0.4 Ml Syringe SC 10/06/23 17:59 Not Given
QPM TANNA
Furosemide 20 mg 09/09/23 08:00 09/09/23 13:07
Furosemide 20 Mg Tablet PO 10/07/23 07:59 20 mg
Q48H TANNA Administration
Furosemide 30 mg 09/10/23 08:00
Furosemide 20 Mg Tablet PO 10/08/23 07:59
Q48H TANNA
Lidocaine 2 patch 09/08/23 14:28 09/09/23 09:05
Lidocaine 4% Topical Patch TOPICAL 10/06/23 14:27 2 patch
DAILY TANNA Administration
Menthol/Methyl Salicylate 0 applic 09/08/23 16:00 09/09/23 09:03
Bengay-Like Cream TOPICAL 10/06/23 15:59 1 applic
TID TANNA Administration
Multivitamins Therapeutic 1 tablet 09/09/23 08:00 09/09/23 09:06
Multivitamin Tablet PO 10/07/23 07:59 1 tablet
DAILY TANNA Administration
Non-Formulary Medication 1 spray 09/08/23 14:28
Ipratropium [place] NASAL
TID PRN
congestion
Ondansetron HCl 4 mg 09/08/23 14:28
Ondansetron 4 Mg/2 Ml Vial IV 10/06/23 14:27
Q6HPRN PRN
nausea and vomiting
Patch Removal 0 patch 09/08/23 20:00 09/08/23 21:02
Remove Lidocaine Patch REMOVE 10/06/23 19:59 2 patch
DAILY@2000 TANNA Administration
Polyethylene Glycol 17 grams 09/08/23 14:28
Polyethylene Glycol Powder 17 Grams Packet PO 10/06/23 14:27
DAILYPRN PRN
constipation
Senna/Docusate Sodium 1 tablet 09/08/23 14:28
Docusate W/Senna (Doris-Colace) Tablet PO 10/06/23 14:27
BIDPRN PRN
constipation
Sodium Chloride 0 flush 09/08/23 15:00 09/09/23 09:08
Sodium Chloride 0.9% (Flush) Syringe IV 10/06/23 14:59 1 flush
PER PROTOCOL TANNA Administration
Tiotropium [place] 2 puff 09/09/23 08:00 09/09/23 07:46
Tiotropium (Spiriva Respimat) 2.5 Mcg Inhaler INH 10/07/23 07:59 2 puff
R DAILY TANNA Administration
Tramadol HCl 50 mg 09/08/23 14:28 09/08/23 16:51
Tramadol Hcl 50 Mg Tablet PO 10/06/23 14:27 50 mg
Q8HPRN PRN Administration
severe pain
Zolpidem Tartrate 10 mg 09/08/23 22:00 09/08/23 21:04
Zolpidem Tartrate 10 Mg Tablet PO 10/06/23 21:59 10 mg
HS TANNA Administration
Home Medications
�Medication �Instructions �Recorded
allopurinol 100 mg tablet 100 mg PO DAILY Gout 06/19/23
budesonide 160 mcg-glycopyr 9 1 inh inhalation R BID 06/19/23
mcg-formot 4.8 mcg/actuation HFA Lung/Breathing Issues
inhaler (Breztri Aerosphere)
ipratropium bromide 42 mcg (0.06 1 spray intranasal TID PRN 06/19/23
%) nasal spray congestion
tezepelumab-ekko 210 mg/1.91 mL 210 mg SC Q4W asthma 06/19/23
(110 mg/mL) subcutaneous syringe
(Tezspire)
tramadol 50 mg tablet 50 mg PO Q8HPRN PRN severe pain 06/19/23
upadacitinib 15 mg tablet,extended 15 mg PO DAILY Psoriatic arthritis 06/19/23
release 24 hr (Rinvoq)
zolpidem 12.5 mg tablet,extended 12.5 mg PO HS Sleep 06/19/23
release,multiphase
acetaminophen 325 mg tablet 650 mg PO Q6HPRN PRN mild pain 09/08/23
(Tylenol)
calcium carbonate 500 mg PO DAILY Supplement 09/08/23
cholecalciferol (vitamin D3) 25 25 mcg PO DAILY Supplement 09/08/23
mcg (1,000 unit) tablet (Vitamin
D3)
coQ10 (ubiquinol) 100 mg capsule 100 mg PO DAILY Supplement 09/08/23
cyclobenzaprine 10 mg tablet 10 mg PO TIDPRN PRN spasms 09/08/23
furosemide 20 mg tablet 20 mg PO Q48H Fluid 09/08/23
Retention/Swelling
furosemide 20 mg tablet 30 mg PO Q OTHER DAY 09/08/23
therapeutic multivitamin 1 tab PO DAILY Supplement 09/08/23
[2023-09-09] MEDS: BenGay-Like TOPICAL ×2 (16:06→21:42)
[2023-09-09] MEDS: VITAMIN B-12 1000 MCG PO (16:06)
[2023-09-09] MEDS: PLAVIX 75 MG PO (16:06)
[2023-09-09] MEDS: SYMBICORT 160/4.5 MCG INHALER INH (20:03)
[2023-09-09] MEDS: AMBIEN 10 MG PO (21:43)
[2023-09-10 03:18] VITALS: BP 155/104
[2023-09-10 05:49] VITALS: BP 148/102
[2023-09-10] MEDS: LOW STRENGTH ASPIRIN 81 MG PO (08:13)
[2023-09-10] MEDS: PLAVIX 75 MG PO (08:15)
[2023-09-10] MEDS: OSCAL CAL 500 500 MG PO (08:15)
[2023-09-10] MEDS: ZYLOPRIM 100 MG PO (08:15)
[2023-09-10] MEDS: VITAMIN B-12 1000 MCG PO (08:15)
[2023-09-10] MEDS: LIDOCAINE 4% PATCH 2 PATCH TOPICAL (08:16)
[2023-09-10] MEDS: THERAGRAN 1 TABLET PO (08:16)
[2023-09-10] MEDS: BenGay-Like 1 APPLIC TOPICAL (08:16)
[2023-09-10] MEDS: VITAMIN D3 (cholecalciferol) 25 MCG PO (08:16)
[2023-09-10 08:22] VITALS: BP 146/86
[2023-09-10] MEDS: SYMBICORT 160/4.5 MCG INHALER 2 PUFF INH (08:42)
[2023-09-10] MEDS: SPIRIVA RESPIMAT 2.5 MCG 2 PUFF INH (08:42)
--- NOTE | 2023-09-10 09:10 | W.PN.HOSP.TC ---
Today's Communication/Plan
-
await CT-A results then consider DC
Assessment / Plan
Assessment / Plan
Assessment:
Acute CVA
- CT head: Subcentimeter focal hypodensity within the right basal ganglia suspicious for age indeterminate lacunar infarct.
- MRI: 8.7 mm ACUTE ISCHEMIC INFARCT in the SUBCORTICAL WHITE MATTER of the LATERAL RIGHT FRONTAL LOBE RODRIGUEZ RADIATA. 7.5 mm chronic ischemic infarct in the left frontal lobe centrum semiovale. Moderate periventricular and subcortical white matter
leukoaraiosis in the frontal and parietal lobes. Mild diffuse cerebral and cerebellar volume loss. 7 mm chronic intraparenchymal microhemorrhage in the posterior superior left temporal lobe.
- chronic hemorrhage could be suggestive of amyloidosis
- CT-A pending
- A1c is 5.8%, LDL is 186.
- continue Plavix. She is refusing ASA due to concern of bleeding interaction with Rinvoq (per patient and her biological scientist, Dr. Mack).
- continue Zetia. Patient refusing statin due to muscle cramps. OP evaluation of PSCK9i with OP Cardiology (Dr. Weinstein).
- PT/OT - outpatient therapy recommended, script provided
Severe multilevel discogenic degenerative disease in the cervical spine with disc-osteophyte complexes causing mild multilevel spinal cord compression.
- outpatient neuro-sx follow up
TME likely in setting of Flexeril
- she also is on Tramadol but prior to current presentation without any known side effects
- stop Flexeril
- no other NEW meds
- no concern for infectious etiology, UA negative, no fevers, normal WBC
- neuro checks q4h
- mental status has improved
Mechanical fall
- CT head negative for trauma
- PT/OT - outpatient therapy recommended, script provided
Acute back pain, likely muscular
- hold all muscle relaxers
- ok to resume Tramadol which is a chronic
- heating pad
- Lidocaine patches
- Bengay
- PT/OT - outpatient therapy recommended, script provided
- she follows with pain management and has an appointment later this week to review her regimen and try to cut back
Recent NSTEMI 05/2023
HLD
- continue Plavix. She is refusing ASA due to concern of bleeding interaction with Rinvoq (per patient and her biological scientist, Dr. Mack).
- continue Zetia. Patient refusing statin due to muscle cramps.
- OP evaluation of PSCK9i with OP Cardiology (Dr. Weinstein).
Essential Hypertension
- Intolerant to multiple medications
- continue Lasix
Mitral stenosis
Mitral regurgitation
Vitamin D deficiency on replacement
Fibromyalgia
- on Rinvoq
Asthma
- on Tezspire/Breztri
Chronic insomnia
- on Ambien
Former smoker
DVT ppx: SCDs - refusing Lovenox
Code: Full
Anticipated Discharge: Within 24 hours
Subjective/Interval History
-
Date of Service: September 10, 2023
no new complaints, feels less foggy today
Objective Data
-
Vital Signs:
Vital Signs
Temp Pulse Resp BP Pulse Ox
97.5 F 109 18 146/86 96
09/10/23 08:22 09/10/23 08:22 09/10/23 08:22 09/10/23 08:22 09/10/23 08:22
I&O
09/09/23 09/10/23 09/11/23
06:59 06:59 06:59
Intake Total 1680 / 1680 1290 / 1290
Balance 1680 / 1680 1290 / 1290
Physical Exam
-
General: No Apparent Distress
HEENT: Normocephalic and Atraumatic
Respiratory: Negative Wheezes
Cardiac: Regular Rhythm
GI: Soft
Genito-urinary: No Costovertebral Tender
Neuro: AO x 3
Psych: Calm
Data Reviewed
-
Total Time Spent with Patient (in minutes): 41
Labs: Labs Reviewed by me
--- NOTE | 2023-09-10 09:13 | W.PN.NEURO.1 ---
Today's Communication / Plan
-
Follow-up with neurosurgery as planned for cervical spine compression
Outpatient home sleep study for probable obstructive sleep apnea
Neuro Assessment/Plan
Assessment
IMPRESSIONS/RECOMMENDATIONS:
Abrupt onset of encephalopathy most likely secondary to acute ischemic stroke involving the right frontal bojorquez radiata as demonstrated by MRI of brain
Presence of a left temporal lobe chronic hemorrhage is suggestive of possible cerebral amyloidosis
Provided dual antiplatelet therapy although with use of Upadacitinib discontinue aspirin and continue life-long
Check CTA head and neck to better define possible etiologies for the patient's symptomatology
Provide Ezetimibe as the patient is statin intolerant
Follow-up with neurosurgery as planned for cervical spine compression
Outpatient home sleep study for probable obstructive sleep apnea
Will follow as needed.
Plan
Provided dual antiplatelet therapy although with use of Upadacitinib discontinue aspirin and continue life-long
Check CTA head and neck to better define possible etiologies for the patient's symptomatology
Started Ezetimibe as the patient is statin intolerant
Follow-up with neurosurgery as planned for cervical spine compression
Outpatient home sleep study for probable obstructive sleep apnea
Subjective/Objective
Subjective Data
Date of Service: September 10, 2023
Some residual changes.
Objective Data
Vital Signs
Temp Pulse Resp BP Pulse Ox
36.4 C 109 18 146/86 96
09/10/23 08:22 09/10/23 08:22 09/10/23 08:22 09/10/23 08:22 09/10/23 08:22
Lab Results
09/09/23 05:03
09/09/23 05:03
Sodium 140 mmol/L (135-145) 09/09/23 05:03
Potassium 4.0 mmol/L (3.5-5.1) 09/09/23 05:03
BUN 14 mg/dl (7-17) 09/09/23 05:03
Glucose 100 mg/dl (70-99) H 09/09/23 05:03
Calcium 9.7 mg/dl (8.4-10.2) 09/09/23 05:03
LDL Cholesterol, Calc 186 mg/dl 09/09/23 05:03
Vitamin B12 353 pg/ml (239-931) 09/09/23 05:03
Ur Buprenorphine Negative (Negative) 09/08/23 07:42
Patient Allergies
bacitracin Allergy (Verified 09/08/23 06:09)
Hives
clavulanic acid [From Augmentin] Allergy (Verified 09/08/23 06:09)
Nausea / Vomiting
Fish Containing Products Allergy (Verified 09/08/23 06:09)
Unknown
neomycin [Neomycin] Allergy (Verified 09/08/23 06:09)
EYE DROPS
Sulfa (Sulfonamide Antibiotics) Allergy (Verified 09/08/23 06:09)
Hives
sulfacetamide Allergy (Verified 09/08/23 06:09)
Hives
Review of Systems
-
History Source: Patient
All other systems: Reviewed and negative
Physical Exam
-
General: No Apparent Distress and Appears Stated Age
Eyes: Round OU, [place] Conjunctivae and No Ptosis
HEENT: Anicteric and Moist Mucous Membranes
Neck: Full Range of Motion
Respiratory: No Dyspnea
Cardiac: No JVD
GI: Non-distended
Skin: Unremarkable
Extremities: No Clubbing, No Cyanosis and No Edema
Psych: Intact Judgement/Insight
Extended Neurological Exam
Mood & Affect: Mood Unremarkable and Affect Unremarkable
Attention Span & Concentration: Awake, Alert, Interactive and No Difficulty with 2 Step Request
Memory: Unremarkable
Tremor: Hand Tremor Absent and Head Tremor Absent
Speech: Quality Unremarkable and Quantity Unremarkable
Cranial Nerve II: Left Eye: Pupillary Reactivity Unremarkable, Pupillary Size Unremarkable and Visual Esteban Intact
Cranial Nerve II: Right Eye: Pupillary Reactivity Unremarkable, Pupillary Size Unremarkable and Visual Esteban Intact
Cranial Nerves III, IV, : Extraocular Movement: Extraocular Movement Full in all Directions
Cranial Nerve VII: Facial Symmetry: Normal Facial Symmetry
Cranial Nerve VIII: Hearing: Unremarkable Hearing to Normal Conversational Volume
Cranial Nerves IX, X: Palate Movement: Palate Elevation Symmetric
Cranial Nerve XI: Shoulder Shrug: Unremarkable
Cranial Nerve XII: Tongue Protusion: Midline
Muscle Strength, Overall: Full Throughout
Muscle Bulk & Tone: Bulk Unremarkable and Tone Unremarkable
Pronator Drift: No Drift in Upper Extremities
Deep Tendon Reflexes: Trace Throughout
Touch Sensation: Unremarkable
Coordination: [id number] Testing Unremarkable
Gait & Station: Romberg Test Negative
Data Reviewed
-
CT Head: Report Reviewed
MRI Head: Report Reviewed and Image Reviewed
Labs: Report Reviewed
Reviewed with: Physician, Nurse Practioner and Patient
Old Records: Summarized
Past History
Past History
ED Past Medical History: CVA (August 2023), Fibromyalgia and Other (Kidney stones, rheumatoid arthritis)
ED Past Surgical History: Other (Eye surgery)
Social History
Tobacco: Non-smoker
Alcohol: Occasional
Personal:
Living: with family
Employment: Employed
Family History
Family History: Negative Early CAD
Medications
-
Medications:
Generic Name Dose Route Start Last Admin
Trade Name Freq PRN Reason Stop Dose Admin
Acetaminophen 650 mg 09/08/23 14:28
Acetaminophen 325 Mg Tablet PO 10/06/23 14:27
Q6HPRN PRN
mild pain
Albuterol Sulfate 2.5 mg 09/08/23 14:28
Albuterol Nebs 2.5 Mg/3 Ml Ampul INH
R Q4HPRN PRN
shortness of breath
Protocol
Allopurinol 100 mg 09/09/23 08:00 09/10/23 08:15
Allopurinol 100 Mg Tablet PO 10/07/23 07:59 100 mg
DAILY TANNA Administration
Aspirin 81 mg 09/10/23 08:00 09/10/23 08:13
Aspirin 81 Mg Chewable Tablet PO 10/08/23 07:59 81 mg
DAILY TANNA Administration
Bisacodyl 10 mg 09/08/23 14:28
Bisacodyl 10 Mg Rectal Suppository RECTAL 10/06/23 14:27
[id number] PRN
constipation
Budesonide/Formoterol Fumarate 2 puff 09/08/23 20:00 09/10/23 08:42
Symbicort Inhaler 160/4.5 INH 10/06/23 19:59 2 puff
R BID TANNA Administration
Calcium Carbonate 500 mg 09/09/23 08:00 09/10/23 08:15
Calcium Carbonate 500 Mg Tablet PO 10/07/23 07:59 500 mg
DAILY TANNA Administration
Cholecalciferol 25 mcg 09/09/23 08:00 09/10/23 08:16
Cholecalciferol (Vitamin D3) 25 Mcg Tablet (1,000 Units) PO 10/07/23 07:59 25 mcg
DAILY TANNA Administration
Clopidogrel Bisulfate 75 mg 09/09/23 16:00 09/10/23 08:15
Clopidogrel 75 Mg Tablet PO 09/29/23 08:01 75 mg
DAILY TANNA Administration
Cyanocobalamin 1,000 mcg 09/09/23 15:00 09/10/23 08:15
Cyanocobalamin 1,000 Mcg Tablet PO 10/07/23 14:59 1,000 mcg
DAILY TANNA Administration
Ezetimibe 10 mg 09/09/23 22:00 09/09/23 21:46
Ezetimibe (Zetia) 10 Mg Tablet PO 10/07/23 21:59 Not Given
HS TANNA
Furosemide 20 mg 09/09/23 08:00 09/09/23 13:07
Furosemide 20 Mg Tablet PO 10/07/23 07:59 20 mg
Q48H TANNA Administration
Furosemide 30 mg 09/10/23 08:00
Furosemide 20 Mg Tablet PO 10/08/23 07:59
Q48H TANNA
Lidocaine 2 patch 09/08/23 14:28 09/10/23 08:16
Lidocaine 4% Topical Patch TOPICAL 10/06/23 14:27 2 patch
DAILY TANNA Administration
Menthol/Methyl Salicylate 0 applic 09/08/23 16:00 09/10/23 08:16
Bengay-Like Cream TOPICAL 10/06/23 15:59 1 applic
TID TANNA Administration
Multivitamins Therapeutic 1 tablet 09/09/23 08:00 09/10/23 08:16
Multivitamin Tablet PO 10/07/23 07:59 1 tablet
DAILY TANNA Administration
Non-Formulary Medication 1 spray 09/08/23 14:28
Ipratropium [place] NASAL
TID PRN
congestion
Ondansetron HCl 4 mg 09/08/23 14:28
Ondansetron 4 Mg/2 Ml Vial IV 10/06/23 14:27
Q6HPRN PRN
nausea and vomiting
Patch Removal 0 patch 09/08/23 20:00 09/09/23 21:42
Remove Lidocaine Patch REMOVE 10/06/23 19:59 2 patch
DAILY@2000 TANNA Administration
Polyethylene Glycol 17 grams 09/08/23 14:28
Polyethylene Glycol Powder 17 Grams Packet PO 10/06/23 14:27
DAILYPRN PRN
constipation
Senna/Docusate Sodium 1 tablet 09/08/23 14:28
Docusate W/Senna (Doris-Colace) Tablet PO 10/06/23 14:27
BIDPRN PRN
constipation
Sodium Chloride 0 flush 09/08/23 15:00 09/09/23 09:08
Sodium Chloride 0.9% (Flush) Syringe IV 10/06/23 14:59 1 flush
PER PROTOCOL TANNA Administration
Tiotropium [place] 2 puff 09/09/23 08:00 09/10/23 08:42
Tiotropium (Spiriva Respimat) 2.5 Mcg Inhaler INH 10/07/23 07:59 2 puff
R DAILY TANNA Administration
Tramadol HCl 50 mg 09/08/23 14:28 09/08/23 16:51
Tramadol Hcl 50 Mg Tablet PO 10/06/23 14:27 50 mg
Q8HPRN PRN Administration
severe pain
Zolpidem Tartrate 10 mg 09/08/23 22:00 09/09/23 21:43
Zolpidem Tartrate 10 Mg Tablet PO 10/06/23 21:59 10 mg
HS TANNA Administration
NIH Stroke Scale
NIH Stroke Score
Level of Consciousness: 0 - Alert
LOC Questions: 0-Answers both correctly
LOC Commands: 0-Performs both correctly
Best Horizontal Gaze: 0-Normal
Visual Esteban: 0=Normal, no visual loss
Facial Palsy: 0=Normal, symmetrical
Motor - Right Arm: 0=No drift 10 seconds
Motor - Left Arm: 0=No drift 10 seconds
Motor - Right Le-No drift 5 seconds
Motor - Left Le-No drift 5 seconds
Limb Ataxia: 0-Absent
Sensation: 0-Normal
Best Language: 0-No aphasia
Dysarthria: 0-Normal
Extinction and Inattention: 0-No abnormality
Total Score:: 0
Modified Mariaelean (mRS) Score
Modified Mariaelena Scale (mRS): Moderate disability. Requires some help, able to walk unassisted.
Score: 3
[2023-09-10 11:24] VITALS: BP 143/95
[2023-09-10] MEDS: LASIX 30 MG PO (11:35)
[2023-09-10 12:13] VITALS: PULSE 75
--- NOTE | 2023-09-10 13:05 | W.DS.TRANS ---
DC Summary - Stock Control Clerk
-
Discharge Instructions:
Discharge Diagnosis/Procedures acute CVA, encephalopathy in setting of flexeril
Diet Low Cholesterol
Activity As tolerated
Bathing Restrictions None
Other Services PT,OT
Instructions:
Stand-Alone Forms:
Changes to Home Medications: No
Discharge Medications:
DC Medications w/original date entered in [employer]
allopurinol 100 mg tablet 100 mg PO DAILY Gout 06/19/23
budesonide 160 mcg-glycopyr 9 mcg-formot 4.8 mcg/actuation HFA inhaler (Breztri Aerosphere) 1 inh inhalation R BID Lung/Breathing Issues 06/19/23
ipratropium bromide 42 mcg (0.06 %) nasal spray 1 spray intranasal TID PRN congestion 06/19/23
tezepelumab-ekko 210 mg/1.91 mL (110 mg/mL) subcutaneous syringe (Tezspire) 210 mg SC Q4W asthma 06/19/23
tramadol 50 mg tablet 50 mg PO Q8HPRN PRN severe pain 06/19/23
upadacitinib 15 mg tablet,extended release 24 hr (Rinvoq) 15 mg PO DAILY Psoriatic arthritis 06/19/23
zolpidem 12.5 mg tablet,extended release,multiphase 12.5 mg PO HS Sleep 06/19/23
acetaminophen 325 mg tablet (Tylenol) 650 mg PO Q6HPRN PRN mild pain 09/08/23
calcium carbonate 500 mg PO DAILY Supplement 09/08/23
cholecalciferol (vitamin D3) 25 mcg (1,000 unit) tablet (Vitamin D3) 25 mcg PO DAILY Supplement 09/08/23
coQ10 (ubiquinol) 100 mg capsule 100 mg PO DAILY Supplement 09/08/23
furosemide 20 mg tablet 20 mg PO Q48H Fluid Retention/Swelling 09/08/23
furosemide 20 mg tablet 30 mg PO Q OTHER DAY Fluid Retention/Swelling 09/08/23
therapeutic multivitamin 1 tab PO DAILY Supplement 09/08/23
clopidogrel 75 mg tablet 75 mg PO DAILY #30 tabs 09/10/23
cyanocobalamin (vitamin B-12) 1,000 mcg tablet 1,000 mcg PO DAILY #100 tabs 09/10/23
ezetimibe 10 mg tablet 10 mg PO HS #30 tabs 09/10/23
Home Medication Changes
Pending Results: No
Total time spent discharging patient (in min): 42
--- NOTE | 2023-09-10 13:06 | CM ---
I met with Abena in her room. She was very talkative, waiting to hear if she would be having a procedure today, or have to return at a later date. She is hopeful that any procedure needed will be done prior to discharge, but based on the time,
she anticipates that she may have to follow up as an outpatient.
Abena is planning to change her PCP to Dr Lacy with [facility]. I left a message with the office to make them aware at Abena's request.
Plan: Discharge to home with outpatient follow up. Plan to change PCP to Dr. Lacy.
== END 2023-09-10 15:41 | disposition home or self-care (01) | DRG 64 ==
LOC: 4 EAST ACU 13:48
PROVIDERS: Physician Assistant; ADMITTING PHYSICIAN Internal Medicine; CONSULT PHYSICIAN Psychiatry & Neurology Neurology; EMERGENCY PHYSICIAN Emergency Medicine; FAMILY PHYSICIAN Family Medicine
DX: I63.9 Cerebral infarction, unspecified (principal); G92.8 Other toxic encephalopathy; R44.3 Hallucinations, unspecified; M79.7 Fibromyalgia; W01.10XA Fall on same level from slipping, tripping and stumbling with subsequent striking against unspecified object, initial encounter; Y93.01 Activity, walking, marching and hiking; Y92.009 Unspecified place in unspecified non-institutional (private) residence as the place of occurrence of the external cause; E55.9 Vitamin D deficiency, unspecified; E78.00 Pure hypercholesterolemia, unspecified; G47.00 Insomnia, unspecified; I05.2 Rheumatic mitral stenosis with insufficiency; I10 Essential (primary) hypertension; G47.33 Obstructive sleep apnea (adult) (pediatric); I25.10 Atherosclerotic heart disease of native coronary artery without angina pectoris; J45.909 Unspecified asthma, uncomplicated; M19.90 Unspecified osteoarthritis, unspecified site; M47.22 Other spondylosis with radiculopathy, cervical region; M50.322 Other cervical disc degeneration at C5-C6 level; M50.323 Other cervical disc degeneration at C6-C7 level; L40.50 Arthropathic psoriasis, unspecified; T48.1X5A Adverse effect of skeletal muscle relaxants [neuromuscular blocking agents], initial encounter; Y92.9 Unspecified place or not applicable; Z87.442 Personal history of urinary calculi; Z87.891 Personal history of nicotine dependence; Z88.2 Allergy status to sulfonamides; Z88.1 Allergy status to other antibiotic agents; Z91.013 Allergy to seafood; I25.2 Old myocardial infarction
CPT/HCPCS: 70450; 70496; 70498; 70551; 80048; 80053; 80061; 80306; 81003; 81015; 82607; 83036; 84439; 84443; 85025; 85027; 93005; 93306; 94640; 97112; 97116; 97163; 97166; 97530; 97535; 99285; Q9967

== ENCOUNTER 2023-09-18 08:34 | Outpatient (RCR) | payer MEDICARE, OTHER, SELFPAY | END 2023-09-18 23:59 | disposition home or self-care (01) | LOC: RPT 08:34 | PROVIDERS: ATTENDING PHYSICIAN Family Medicine | DX: I69.398 Other sequelae of cerebral infarction (principal); Z73.6 Limitation of activities due to disability; R26.89 Other abnormalities of gait and mobility | CPT/HCPCS: 97163; 97167 ==

== ENCOUNTER 2023-10-17 13:01 | Outpatient (RCR) | payer MEDICARE, OTHER, SELFPAY | END 2023-10-17 23:59 | disposition home or self-care (01) | LOC: RPT 13:01 | PROVIDERS: ATTENDING PHYSICIAN Family Medicine | DX: I69.310 Attention and concentration deficit following cerebral infarction (principal); I69.314 Frontal lobe and executive function deficit following cerebral infarction; I69.319 Unspecified symptoms and signs involving cognitive functions following cerebral infarction; Z73.6 Limitation of activities due to disability; R26.89 Other abnormalities of gait and mobility | CPT/HCPCS: 96125; 97110; 97112; 97129; 97130; 97530; 97537 ==

== ENCOUNTER 2023-10-21 11:59 | Outpatient (RCR) | payer MEDICARE, OTHER, SELFPAY | END 2023-10-21 23:59 | disposition home or self-care (01) | LOC: RPT 11:59 | PROVIDERS: ATTENDING PHYSICIAN Family Medicine | DX: I69.310 Attention and concentration deficit following cerebral infarction (principal); I69.314 Frontal lobe and executive function deficit following cerebral infarction; I69.319 Unspecified symptoms and signs involving cognitive functions following cerebral infarction; I69.398 Other sequelae of cerebral infarction; Z73.6 Limitation of activities due to disability; R26.89 Other abnormalities of gait and mobility | CPT/HCPCS: 97129; 97130; 97530 ==

== ENCOUNTER → 2024-06-09 11:36 | Outpatient (REF) | payer MEDICARE, OTHER, SELFPAY | LOC: HWRAD 11:36 | PROVIDERS: ATTENDING PHYSICIAN Internal Medicine Endocrinology, Diabetes & Metabolism; FAMILY PHYSICIAN Family Medicine; OTHER PHYSICIAN Internal Medicine Rheumatology; REFERRING PHYSICIAN Family Medicine | DX: Z78.0 Asymptomatic menopausal state (principal); E04.2 Nontoxic multinodular goiter; N20.0 Calculus of kidney; M25.561 Pain in right knee; M25.562 Pain in left knee | CPT/HCPCS: 73564; 74176; 76536; 77080 ==

== ENCOUNTER → 2024-10-06 08:17 | Outpatient (REF) | payer MEDICARE, OTHER, SELFPAY | LOC: RAD 08:17 | PROVIDERS: ATTENDING PHYSICIAN Surgery; FAMILY PHYSICIAN Family Medicine | DX: N20.0 Calculus of kidney (principal) | CPT/HCPCS: 74018 ==

== ENCOUNTER → 2024-10-21 09:55 | Outpatient (REF) | payer MEDICARE, OTHER, SELFPAY | LOC: RAD 09:55 | PROVIDERS: ATTENDING PHYSICIAN Surgery; FAMILY PHYSICIAN Family Medicine | DX: N28.1 Cyst of kidney, acquired (principal) | CPT/HCPCS: 74177; Q9967 ==

== ENCOUNTER 2025-04-10 09:17 | Emergency (ER) | payer MEDICARE, OTHER, SELFPAY ==
[2025-04-10 09:31] VITALS: BP 152/102
[2025-04-10 10:16] LABS: Hematocrit 41.4 % (37.0-47.0); Hemoglobin 14.0 g/dL (12.0-16.0); Mean Corp Hgb Conc. 33.8 g/dL (33.0-37.0); Mean Corpuscular Volume 87.5 fL (81.0-99.0); Nucleated Red Blood Cells % 0 %; Platelet Count 173 10^3/uL (130-400); Red Cell Dist. Width 13.2 % (11.5-14.5)
[2025-04-10 10:30] LABS: ALT (SGPT) 19 U/L (0-35); AST (SGOT) 25 U/L (14-36); Albumin 4.2 g/dl (3.5-5.0); Alkaline Phosphatase 61 U/L (38-126); Blood Urea Nitrogen 13 mg/dl (7-17); Calcium 9.3 mg/dl (8.4-10.2); Carbon Dioxide 28 mmol/L (22-30); Chloride 103 mmol/L (98-107); Glucose 104 mg/dl (70-99); Potassium 3.9 mmol/L (3.5-5.1); Sodium 137 mmol/L (135-145); Total Protein 6.7 g/dl (6.3-8.2); eGFR > 60.00
--- NOTE | 2025-04-10 12:44 | EDRN ---
This RN assumed care of this pt at this time. Attempted to contact Susan BARNETT charge but no answer.
[2025-04-10] MEDS: NSS 1000 IV (12:55)
[2025-04-10] MEDS: TORADOL 15 MG IV (12:57)
[2025-04-10 13:00] VITALS: BMI 32.6
--- NOTE | 2025-04-10 13:03 | ED.GENMED ---
History of Present Illness
General
Chief Complaint: Flank Pain
Time Seen by Provider: 04/10/25 11:29
History of Present Illness
History of Present Illness:
80-year-old female with prior history of kidney stones presenting to the emergency department for right lower quadrant pain and right flank pain. Patient notes symptoms started last night with some right sided back pain. This morning around 4 AM,
pain progressed to the abdomen. Does note that pain feels somewhat similar to prior episodes of kidney stones. Did have lithotripsy twice in the past. Denies any vomiting. Denies fever. Denies changes in stool. Denies any abdominal surgeries.
Denies additional acute medical complaints
Past History
Past History
ED Past Medical History: CVA (August 2023), Fibromyalgia and Other (Kidney stones, rheumatoid arthritis)
ED Past Surgical History: Other (Eye surgery)
Social History
Tobacco: Non-smoker
Alcohol: Occasional
Personal:
Living: with family
Employment: Employed
Family History
Family History: Negative Early CAD
Phy Exam
Physical Exam
Physical Exam:
General: Well-appearing, no clinical signs of dehydration, nontoxic and in no acute distress
HEENT: protecting airway
Neck: appears supple
CV: Normal heart rate, regular rhythm
Resp: No accessory muscle use, no increased work of breathing
Abd: Reproducible tenderness to the right lower quadrant. No CVA tenderness
Extremities: No deformities, no swelling, no erythema
Neuro: alert, no focal neurologic deficit
: deferred
Rectal: deferred
Psych: Normal affect
Skin: Intact
Course
Orders/Labs/Results
Orders:
Orders
04/10/25 09:36
Urinalysis Reflex To Culture Urgent
Date Specimen was Collected: 04/10/25
Time Specimen was Collected: 09:36
Urine Microscopic Reflex Cult Urgent
04/10/25 09:50
CMP [Comprehensive Metabolic Panel] Urgent
Complete Blood Count/With Diff Urgent
04/10/25 12:11
0.9% Sodium Chloride 1000 ml [Nss] 1,000 ml IV BOLUS
Ketorolac [Toradol] 15 mg IV NOW STA
04/10/25 12:12
CT Abd/pelvis W Iv Cont Urgent
Comment:
Reason For Exam: RLQ pain, possible stone vs appe
04/10/25 16:01
Cephalexin Monohydrate [Keflex] 500 mg PO NOW STA
Abnormal Lab Results
04/10/25 04/10/25
09:36 09:50
Absolute Neuts (auto) 8.7 H 10^3/uL
(1.4-6.5)
Absolute Lymphs (auto) 1.0 L 10^3/uL
(1.2-3.4)
Absolute Monos (auto) 0.8 H 10^3/uL
(0.1-0.6)
Neutrophils % 81.7 H %
(42.2-75.2)
Lymphocytes % 9.4 L %
(20.5-51.1)
Glucose 104 H mg/dl
(70-99)
Ur Occult Blood Reflex 2+ A
(Negative)
Urine RBC 11-15 A /HPF
(0-2)
Urine Bacteria (Reflex) Few A
(Negative)
Urine Albumin (Reflex) 2+ A
(Neg - Trace)
04/10/25 09:50
04/10/25 09:50
Vital Signs
Initial and Last Documented VS:
Initial Vital Signs
Temp Pulse Resp BP Pulse Ox
99.2 F 90 16 152/102 95
04/10/25 09:31 04/10/25 09:31 04/10/25 09:31 04/10/25 09:31 04/10/25 09:31
Last Documented Vital Signs
Temp Pulse Resp BP Pulse Ox
99.2 F 60 16 141/101 94
04/10/25 09:31 04/10/25 15:15 04/10/25 15:15 04/10/25 15:15 04/10/25 15:15
MDM/Problems Addressed
MDM/Problems Addressed:
80-year-old female with prior history of kidney stones presenting for right lower abdominal pain. Vital signs are significant for mild hypertension.
On exam patient is in no acute distress, nontoxic, however focal tenderness to the right lower quadrant. Differential considerations include nephrolithiasis versus appendicitis due to location of pain. Laboratory analysis obtained prior to my
assessment, unremarkable. No present leukocytosis. Will send urinalysis as well and obtain CT abdominal imaging. Will administer Toradol and IV fluids for therapeutics and reassess for improvement
16:00 - Patient reports improvement of her pain. Urine without any sign of infection. CT however shows known large hepatic cyst, which patient is aware of. There is some interval growth. However there was a new finding of some fat stranding
along the inferior aspect of the cyst, extending to the adjacent superior lateral right kidney. Did discuss with interventional radiology, if area is amenable for aspiration. In reviewing the images, suspicion for possible partial cyst rupture
causing some of the fluid and stranding. This appears more consistent with patient's exam. No significant findings of infection at this time, again with clean urine and no leukocytosis. In discussion with interventional radiology, can arrange for
outpatient drainage. Patient in agreement with this plan. Given findings of some inflammation, will start on cephalexin with close and will follow-up with PCP. However did discuss with patient that if pain is worsening at any point, or any
development of fever, that she return to the hospital for reassessment. Patient verbalized understanding
*Pulse Oximetry
SaO2: 95
Oxygen Mode of Delivery: Room air
Patient hypoxic: no
*Critical Care Note
Total Time (30-74mins, 75-104mins- exclusive of procedures): Not Applicable
ED Attending Note
-
Portions of this chart may have been created with voice recognition software.� Occasional wrong word or��sound alike� substitutions may have occurred due to the inherent limitations of voice recognition software.
Discharge Plan
Departure
Prescriptions:
No Action
tramadol 50 mg tablet
50 mg PO Q8HPRN PRN (Reason: severe pain)
ipratropium bromide 42 mcg (0.06 %) spray,non-aerosol
1 spray INTRANASAL TID PRN (Reason: congestion)
zolpidem 12.5 mg tablet,ext release multiphase
12.5 mg PO HS
allopurinol 100 mg Tablet
100 mg PO DAILY
Rinvoq 15 mg Tablet Extended Release 24 Hr
15 mg PO DAILY
Patient Comments:
patient receiving samples from provider office
Breztri Aerosphere 160-9-4.8 mcg/actuation Hfa Aerosol Inhaler
1 inh INHALATION R BID
Patient Comments:
patient receiving samples from provider office
Tezspire 210 mg/1.91 mL (110 mg/mL) Syringe
210 mg SC Q4W
furosemide 20 mg tablet
20 mg PO Q48H
acetaminophen [Tylenol] 325 mg Tablet
650 mg PO Q6HPRN PRN (Reason: mild pain)
therapeutic multivitamin Tablet
1 tab PO DAILY
calcium carbonate 500 mg calcium (1,250 mg) Tablet
500 mg PO DAILY
cholecalciferol (vitamin D3) [Vitamin D3] 25 mcg (1,000 unit) Tablet
25 mcg PO DAILY
coQ10 (ubiquinol) 100 mg Capsule
100 mg PO DAILY
furosemide 20 mg Tablet
30 mg PO Q OTHER DAY
Rx Instructions:
pt alternates between 20 and 30mg each day
cyanocobalamin (vitamin B-12) 1,000 mcg Tablet
1,000 mcg PO DAILY Qty: 100 0RF
clopidogrel 75 mg Tablet
75 mg PO DAILY Qty: 30 0RF
ezetimibe 10 mg Tablet
10 mg PO HS Qty: 30 0RF
Referrals:
Amy Lee DO [Family Provider, Family Practice]
Interventions
Interventions:
*General Assessment Last Done: 04/10/25 13:00
*Neglect/Abuse Screening Last Done: 04/10/25 13:00
*ED COVID-19 Vaccine History Last Done: 04/10/25 13:00
*ED Influenza Vaccine History Last Done: 04/10/25 13:00
[facility] Fall Risk Assessment Tool Last Done: 04/10/25 13:00
*Risk Screen - Suicide (C-SSRS) Last Done: 04/10/25 13:00
UN-Txesvl-Wzmcrrtrrp Assessment Last Done: 04/10/25 13:00
ED-Female Genitourinary Assessment Last Done: 04/10/25 13:00
Discharge Date and Time
Print Language: ZAMBIAN
[2025-04-10 13:06] VITALS: BP 150/98
[2025-04-10 14:00] VITALS: BP 149/84
[2025-04-10 14:16] LABS: Urine Character Clear (Clear)
[2025-04-10 14:24] LABS: Urine Squamous Cell 21-25 /LPF (Few)
--- NOTE | 2025-04-10 14:40 | EDRN ---
Dr. Rousseau in room w/pt at this time. Pt now OOB to BR.
[2025-04-10 15:15] VITALS: BP 141/101
[2025-04-10] MEDS: KEFLEX 500 MG PO (16:07)
== END 2025-04-10 16:20 | disposition home or self-care (01) ==
LOC: EMR 09:17
PROVIDERS: Emergency Medicine; EMERGENCY PHYSICIAN Student in an Organized Health Care Education/Training Program; FAMILY PHYSICIAN Family Medicine
DX: K76.89 Other specified diseases of liver (principal); I10 Essential (primary) hypertension; M06.9 Rheumatoid arthritis, unspecified; M79.7 Fibromyalgia; Z87.442 Personal history of urinary calculi; Z86.73 Personal history of transient ischemic attack (TIA), and cerebral infarction without residual deficits
CPT/HCPCS: 99284; 96374; 96361 ×2; 74177; 80053; 81003; 81015; 85025; Q9967